=== PATIENT | male | born 1960 | race Caucasian/White ===

== ENCOUNTER → 2019-06-09 | Outpatient (CLI) | payer BC ==
[2019-06-09 11:33] LABS: HCT 47.4 % (39.0-53.0); HGB 16.3 gm/dL (13.0-17.5); MCH 32.6 pg (25.0-35.0); MCHC 34.3 g/dL (31.0-37.0); Mean Platelet Volume 7.8; Platelet Count 190 k/uL (150-450); RBC 4.99 m/uL (4.30-5.90); RDW 11.8 % (11.5-15.5); WBC 7.8 k/uL (3.8-10.6)
[2019-06-09 16:15] LABS: African American GFR (CKD) 113.3 (60.0-200.0); Albumin 4.4 g/dL (3.80-4.90); Albumin/Globulin Ratio 2.59 (1.60-3.17); Anion Gap 4.4 mmol/L (4.00-12.00); BUN/Creat Ratio 11.25 Ratio (12.00-20.00); Calcium 8.9 mg/dL (8.7-10.3); Carbon Dioxide 26.6 mmol/L (21.6-31.8); Chol/HDL Ratio 2.74; Globulin 1.7 g/dL (1.6-3.3); LDL Cholesterol,Calculated 51.6 mg/dL (0.0-131.0); Non-African American GFR(CKD) 97.8 (60.0-200.0); Potassium 4.3 mmol/L (3.5-5.5); Total Bilirubin 0.5 mg/dL (0.3-1.2); Total Protein 6.1 g/dL (6.2-8.2); VLDL Calculation 28.4 mg/dL (5.00-40.00)
[2019-06-09 16:24] LABS: T4, Free (Free Thyroxine) 1.4 ng/dL (0.80-1.80)
== END | disposition home or self-care (01) ==
LOC: LABWHC1 10:28
PROVIDERS: ATTEND Physician Assistant
DX: I10 Essential (primary) hypertension (principal); S09.90XA Unspecified injury of head, initial encounter; R40.4 Transient alteration of awareness; F10.10 Alcohol abuse, uncomplicated
CPT/HCPCS: 36415; 80053; 80061; 82140; 82607; 84207; 84439; 84443; 84481; 85027

== ENCOUNTER 2019-11-04 16:23 | Emergency (ER) | payer BC ==
[2019-11-04] MEDS ORDERED: SODIUM CHLORIDE 0.9% 500 ML 500 ML IV STA ×2 (16:37→17:12)
[2019-11-04] MEDS ORDERED: SODIUM CHLORIDE 0.9% 1,000 ML IV STA (16:37)
[2019-11-04 16:53] LABS: Basophils # (A) 0.1 k/uL (0-0.2); Basophils % (A) 1 %; Eosinophils # (A) 0.1 k/uL (0-0.7); Eosinophils % (A) 1 %; HCT 47.5 % (39.0-53.0); HGB 15.4 gm/dL (13.0-17.5); Lymphocytes # (A) 1.2 k/uL (1.0-4.8); Lymphocytes % (A) 12 %; MCH 31.7 pg (25.0-35.0); MCHC 32.4 g/dL (31.0-37.0); MCV 97.9 fL (80.0-100.0); Monocytes # (A) 0.3 k/uL (0-1.0); Monocytes % (A) 3 %; Neutrophils # (A) 8.2 k/uL (1.3-7.7); Neutrophils % (A) 82 %; Platelet Count 214 k/uL (150-450); RBC 4.85 m/uL (4.30-5.90); RDW 12.1 % (11.5-15.5); WBC 9.9 k/uL (3.8-10.6)
[2019-11-04 17:04] LABS: AST 25 U/L (17-59); Acetaminophen <10.0 ug/mL; African American GFR (CKD) >90 (>60 ml/min/1.73 sqM); Alcohol <10 mg/dL; Alkaline Phosphatase 74 U/L (38-126); Anion Gap 16 mmol/L; Blood Urea Nitrogen 7 mg/dL (9-20); Calcium 8.8 mg/dL (8.4-10.2); Carbon Dioxide 14 mmol/L (22-30); Chloride 103 mmol/L (98-107); Glucose 156 mg/dL (74-99); Magnesium 1.8 mg/dL (1.6-2.3); Non-African American GFR(CKD) >90 (>60 ml/min/1.73 sqM); Potassium 4.2 mmol/L (3.5-5.1); Salicylate <1.0 mg/dL; Sodium 133 mmol/L (137-145); Total Bilirubin 0.4 mg/dL (0.2-1.3); Total Protein 6.6 g/dL (6.3-8.2)
--- NOTE | 2019-11-04 17:06 | ED ---
Seizure HPI - General Chief Complaint: Seizure Stated Complaint: Seizure Time Seen by Provider: 11/04/19 16:23 Source: EMS, RN notes reviewed Mode of arrival: EMS Limitations: altered mental status - History of Present Illness Initial Comments: Is a 59-year-old male with a history of hypertension also has possibility of chronic pain syndrome due to medications that are prescribed who presents by EMS with complaints of a seizure. Apparently found on the floor seizing by his lasting approximately 5 minutes or less when he came out of it he was very combative and had to be restrained per paramedics. He was given Versed IM 10 mg a. This did help control his aggressiveness. He did arrive the emergency department somnolent but no seizure activity noted. He did sustain abrasions to his wrist especially on the left the restraints. No known he history of seizure apparently he was out fishing until 2 AM with a friend. He does have a history of a closed head injury in April this past year with evidence of intermittent memory loss per reports. He is been worked up for this no obvious gross abnormalities apparently been found on evaluations. Drugs alcohol or unknown at this time. Patient is unable answer questions at this time. MD Complaint: seizure, shaking - Related Data Home Medications Medication Instructions Recorded Confirmed Buprenorphine HCl/Naloxone HCl 1 film SL BID 11/04/19 11/04/19 [Bupreno-Nalox 2-0.5 mg Sl Film] amLODIPine BESYLATE/BENAZEPRIL 1 cap PO BID 11/04/19 11/04/19 [amLODIPine BESYLATE/BENAZEPRIL 5-20 mg] Allergies Allergy/AdvReac Type Severity Reaction Status Date / Time No Known Allergies Allergy Verified 11/04/19 17:49 Review of Systems ROS Statement: Those systems with pertinent positive or pertinent negative responses have been documented in the HPI. ROS Other: All systems not noted in ROS Statement are negative. Past Medical History Past Medical History: No Reported History, Unable to Obtain, Hypertension History of Any Multi-Drug Resistant Organisms: None Reported Past Surgical History: No Surgical Hx Reported Past Psychological History: No Psychological Hx Reported Smoking Status: Never smoker Past Alcohol Use History: None Reported Past Drug Use History: None Reported General Exam - General Exam Comments Initial Comments: This is a well-developed well-nourished obtunded patient Limitations: altered mental status General appearance: obtunded Head exam: Present: atraumatic, normocephalic, normal inspection Eye exam: Present: PERRL, EOMI, other (Pupils are approximately 2 mm bilaterally with some response noted). Absent: scleral icterus, conjunctival injection, periorbital swelling ENT exam: Present: mucous membranes dry, other (Dry blood in the tongue with evidence of a superficial abrasion no active bleeding seen at this time) Neck exam: Present: normal inspection, other (No cervical collar in place no response to palpation over the neck or C-spine but no evidence of crepitation or step-off.). Absent: tenderness, meningismus, lymphadenopathy Respiratory exam: Present: normal lung sounds bilaterally, other (Patient did evidence a brief apneic episode which did resolve). Absent: respiratory distress, wheezes, rales, rhonchi, stridor Cardiovascular Exam: Present: regular rate, normal rhythm, normal heart sounds. Absent: systolic murmur, diastolic murmur, rubs, gallop, clicks GI/Abdominal exam: Present: soft, normal bowel sounds. Absent: distended, tenderness, guarding, rebound, rigid Extremities exam: Present: full ROM, normal capillary refill, other (No obvious deformity seen abrasions especially over the left wrist no active bleeding no suture repair indicated slight one on the right and left leg abrasions no active bleeding no step-off or crepitation form body.). Absent: tenderness, pedal edema, joint swelling, calf tenderness Back exam: Present: normal inspection Neurological exam: Present: alert, altered, CN II-XII intact Psychiatric exam: Present: other (Unable to evaluate) Skin exam: Present: warm, dry, normal color. Absent: intact (As above), rash Course Vital Signs 11/04/19 11/04/19 11/04/19 16:35 17:13 17:22 Temperature 98.1 F Pulse Rate 92 74 73 Respiratory 18 18 20 Rate Blood Pressure 99/63 77/41 83/43 O2 Sat by Pulse 94 L 97 96 Oximetry 11/04/19 18:01 Temperature Pulse Rate 70 Respiratory 20 Rate Blood Pressure 109/68 O2 Sat by Pulse 98 Oximetry - Reevaluation(s) Reevaluation #1: 11/04/19 18:25 Reevaluation the patient did respond to IV fluids with improvement in his blood pressure. He has had no further respiratory difficulties. Medical Decision Making - Medical Decision Making Patient remains somnolent but somewhat arousable at this time to stimulation. No focal deficits is demonstrated. Patient did present with what appears be a new onset seizure. I did discuss the case with Dr. Quevedo at [facility] there is no neurology coverage at [facility] at this time patient be transferred for further evaluation of new onset seizure. - Lab Data Result diagrams: 11/04/19 16:35 11/04/19 16:35 Lab Results 11/04/19 11/04/19 11/04/19 Range/Units 16:35 16:35 17:09 WBC 9.9 (3.8-10.6) k/uL RBC 4.85 (4.30-5.90) m/uL Hgb 15.4 (13.0-17.5) gm/dL Hct 47.5 (39.0-53.0) % MCV 97.9 (80.0-100.0) fL MCH 31.7 (25.0-35.0) pg MCHC 32.4 (31.0-37.0) g/dL RDW 12.1 (11.5-15.5) % Plt Count 214 (150-450) k/uL Neutrophils % 82 % Lymphocytes % 12 % Monocytes % 3 % Eosinophils % 1 % Basophils % 1 % Neutrophils # 8.2 H (1.3-7.7) k/uL Lymphocytes # 1.2 (1.0-4.8) k/uL Monocytes # 0.3 (0-1.0) k/uL Eosinophils # 0.1 (0-0.7) k/uL Basophils # 0.1 (0-0.2) k/uL Sodium 133 L (137-145) mmol/L Potassium 4.2 (3.5-5.1) mmol/L Chloride 103 (98-107) mmol/L Carbon Dioxide 14 L (22-30) mmol/L Anion Gap 16 mmol/L BUN 7 L (9-20) mg/dL Creatinine 0.88 (0.66-1.25) mg/dL Est GFR (CKD-EPI)AfAm >90 (>60 ml/min/1.73 sqM) Est GFR (CKD-EPI)NonAf >90 (>60 ml/min/1.73 sqM) Glucose 156 H (74-99) mg/dL Calcium 8.8 (8.4-10.2) mg/dL Magnesium 1.8 (1.6-2.3) mg/dL Total Bilirubin 0.4 (0.2-1.3) mg/dL AST 25 (17-59) U/L ALT 22 (4-49) U/L Alkaline Phosphatase 74 (38-126) U/L Creatine Kinase 118 (55-170) U/L Total Protein 6.6 (6.3-8.2) g/dL Albumin 4.0 (3.5-5.0) g/dL TSH 1.130 (0.465-4.680) mIU/L Salicylates <1.0 mg/dL Acetaminophen <10.0 ug/mL Serum Alcohol <10 mg/dL - EKG Data -: EKG Interpreted by Me EKG shows normal: sinus rhythm EKG Comments: Sinus rhythm at 90. Interval 140 QRS duration 92 QT since QTC 366/[address]-T wave changes - Radiology Data Radiology results: report reviewed (I did review the imaging as and report no acute findings on CAT scan however the x-ray does show evidence of increased interstitial markings.), image reviewed Critical Care Time Critical Care Time: Yes Critical Care Time: 39 minutes of critical care time which includes initial presentation with hist ory physical labs x-rays. Multiple reevaluation the patient. Review of old charting that was available which was minimal. Discussion with the transfer team discussion with the initial paramedics brought the patient in. Discussion with the receiving facility and documentation of the above. Disposition Clinical Impression: New onset seizure, Generalized seizure, Hypotensive episode, Abrasions of multiple sites Disposition: OTHER INSTITUTION NOT DEFINED Condition: Fair Is patient prescribed a controlled substance at d/c from ED?: No Referrals: None,Stated [Primary Care Provider] - 1-2 days - Out of Hospital Transfer - Req. Specs Out of Hospital Transfer - Requested Specifics: Other Emergency Center
[2019-11-04 17:10] LABS: ALT 22 U/L (4-49)
--- NOTE | 2019-11-04 17:21 | CT ---
EXAMINATION TYPE: CT brain cspine wo con DATE OF EXAM: 11/04/2019 COMPARISON: None HISTORY: seizure CT DLP: 1313.8 mGycm Automated exposure control for dose reduction was used. Multiple axial sections were obtained of the brain without contrast. Multiple axial sections were obt ained from the skull base to T1 vertebra without contrast. Ventricles have normal size. There is no mass effect nor midline shift. There is no sign of intracran ial hemorrhage. The calvarium is intact. Cervical vertebra have normal alignment. There is mild spurring of the endplates throughout the cervi ivis spine. Posterior elements are intact. There is mild multilevel cervical hypertrophic facet arthro mitchell. The skull base is intact. There is normal aeration of the temporal bones. IMPRESSION: Negative head CT scan. Mild degenerative changes in the cervical spine. No fracture.
[2019-11-04 17:22] VITALS: RESP 20
[2019-11-04] MEDS ORDERED: levETIRAcetam IV 1,000 MG in SALINE 1 100ML.BAG IVPB STA (17:45)
--- NOTE | 2019-11-04 18:00 | XR ---
EXAMINATION TYPE: XR chest 1V portable DATE OF EXAM: 11/04/2019 COMPARISON: NONE HISTORY: Altered mental status. Seizure. TECHNIQUE: Single view FINDINGS: Heart and mediastinum are normal. There is coarse interstitial density throughout the lungs . Costophrenic angles are clear. There are chest leads. Bony thorax is intact. IMPRESSION: Diffuse interstitial pulmonary infiltrates. This could relate to acute interstitial pneum onia. Normal heart.
[2019-11-04] MEDS ORDERED: DIPH,PERTUS(ACELL)TETVAC-LF 0.5 ML VIAL IM ONE (18:28)
[2019-11-04 19:13] VITALS: BP 110/67; PULSE 64; TEMP 97
== END 2019-11-04 19:30 | disposition other institution (70) ==
LOC: EC 16:23
DX: G40.409 Other generalized epilepsy and epileptic syndromes, not intractable, without status epilepticus (principal); I95.9 Hypotension, unspecified; S80.812A Abrasion, left lower leg, initial encounter; S00.512A Abrasion of oral cavity, initial encounter; S60.812A Abrasion of left wrist, initial encounter; I10 Essential (primary) hypertension; Z23 Encounter for immunization; Z79.899 Other long term (current) drug therapy; X58.XXXA Exposure to other specified factors, initial encounter; Y92.009 Unspecified place in unspecified non-institutional (private) residence as the place of occurrence of the external cause
CPT/HCPCS: 36415; 93005; 83880; 80053; 84443; 82550; 83735; 84484; 85025; 83520; 80329; 80320; 71045; 72125; 70450; 90715; 96365; 90471; 96361; 99291; J1953

== ENCOUNTER → 2020-07-03 | Outpatient (CLI) | payer BC ==
[2020-07-03 10:54] LABS: HCT 44.8 % (39.0-53.0); HGB 15.3 gm/dL (13.0-17.5); MCH 31.8 pg (25.0-35.0); MCHC 34.1 g/dL (31.0-37.0); MCV 93.1 fL (80.0-100.0); Platelet Count 217 k/uL (150-450); RBC 4.81 m/uL (4.30-5.90); RDW 12.4 % (11.5-15.5); WBC 8.9 k/uL (3.8-10.6)
[2020-07-05 07:22] LABS: Vit B1(Thiamine) 74 ug/L (38-122)
== END | disposition home or self-care (01) ==
LOC: LABWHC1 10:19
PROVIDERS: ATTEND Physician Assistant
DX: F03.90 Unspecified dementia, unspecified severity, without behavioral disturbance, psychotic disturbance, mood disturbance, and anxiety (principal); R41.3 Other amnesia
CPT/HCPCS: 36415; 82040; 82042; 82784; 83916; 84425; 85027

== ENCOUNTER → 2021-05-29 | Outpatient (CLI) | payer BC ==
--- NOTE | 2021-05-29 13:41 | NM ---
EXAMINATION TYPE: NM bone scan whole body DATE OF EXAM: 05/29/2021 COMPARISON: NONE HISTORY: Prostate cancer Delayed whole-body scanning was performed following the injection of 20.0 mCi Tc 99m MDP. Images acq uired 3 hours post injection. FINDINGS: Extensive uptake involving the right kidney marked increased uptake involving the left kidn ey. Abnormal uptake involving the shoulders, sternoclavicular joints knees most typical of post arthritic change. Faint abnormal uptake proximal level of L3 on the left likely degenerative. Faint uptake seen through out the mid and lower thoracic spine likely degenerative. IMPRESSION: 1. No diagnostic evidence of metastases. 2. Correlate for nonfunctioning right or atrophic right kidney. Correlate with ultrasound as clinical ly.
== END | disposition home or self-care (01) ==
LOC: RADNMMAIN 10:01
PROVIDERS: ATTEND Urology
DX: C61 Malignant neoplasm of prostate (principal)
CPT/HCPCS: 78306; A9503

== ENCOUNTER → 2021-06-24 | Outpatient (CLI) | payer BC ==
--- NOTE | 2021-06-24 16:15 | US ---
EXAMINATION TYPE: US kidneys/renal and bladder DATE OF EXAM: 06/24/2021 COMPARISON: NONE CLINICAL HISTORY: N26.1 Atrophy of kidney. HX of prostate ca EXAM MEASUREMENTS: Right Kidney: 11.3 x 6.0 x 5.2 cm Left Kidney: 11.0 x 5.4 x 5.2 cm Right Kidney: No hydronephrosis or masses seen Left Kidney: No hydronephrosis or masses seen Bladder: Appears wnl; anechoic Bilateral Jets seen: Yes IMPRESSION: Normal renal ultrasound
== END | disposition home or self-care (01) ==
LOC: RADUSWWP 14:09
PROVIDERS: ATTEND Urology
DX: N26.1 Atrophy of kidney (terminal) (principal); Z85.46 Personal history of malignant neoplasm of prostate
CPT/HCPCS: 76770

== ENCOUNTER → 2021-09-05 | Outpatient (CLI) | payer BC ==
--- NOTE | 2021-09-06 12:45 | CT ---
EXAMINATION TYPE: CT ChestAbdPelvis wo/w con DATE OF EXAM: 09/05/2021 COMPARISON: Whole body bone scan June 08, 2021. Outside Prostate MRI May 25, 2021 HISTORY: new prostate ca dx CT DLP: 1010.4 mGycm. Automated Exposure Control for Dose Reduction was Utilized. CONTRAST: CT scan of the thorax, abdomen and pelvis is performed with oral and without and with IV Contrast, pa tient injected with 100 mL of Isovue 300. FINDINGS: LUNGS: Moderate underlying emphysematous change bilaterally. Heterogeneous enhancing spiculated mass or less likely mass like consolidation measuring 2.8 x 2.8 cm and the periphery of the inferior right upper lobe axial image 22 with inferior extension measuring 3.3 x 2.1 cm axial image 27. There is re ticulation near and surrounding this level. Nonspecific 4 mm peripheral right middle lobe nodule axia l image 43. No pleural effusion or pneumothorax seen bilaterally. MEDIASTINUM: There is abnormal 1.7 x 1.7 cm right tracheobronchial lymph node image 29. There is four -vessel origin from the aortic arch which is normal variant. Small to tiny pericardial effusion. No c ardiomegaly. LIVER/GB: No significant abnormality is appreciated. PANCREAS: No significant abnormality is seen. SPLEEN: No significant abnormality is seen. ADRENALS: No significant abnormality is seen. KIDNEYS: Symmetric cortical margin of the uptake and excretion without hydronephrosis seen bilaterall y. BOWEL: Oral contrast reaches level of terminal ileum in the right pelvis. No suspicious small or larg e bowel dilatation. GENITAL ORGANS: Prostate gland is mildly enlarged . Markedly abnormal appearance on MRI less well see n on CT LYMPH NODES: No greater than 1cm abdominal or pelvic lymph nodes are appreciated. Prominent pelvic ly mph nodes on MRI less well-seen on CT. OSSEOUS STRUCTURES: Nonspecific subtle lytic lesion superior L4 endplate coronal image 54. OTHER: [id number] calcified plaque of the abdominal aorta extends into branch vessels. IMPRESSION: Moderate emphysematous change with suspicious peripheral spiculated mass and/or less like ly masslike consolidation in the inferior right upper lobe. Finding worrisome for neoplasm. There is abnormal right tracheobronchial lymph node noted. Consider metastatic disease versus second primary lung carcinoma.
== END | disposition home or self-care (01) ==
LOC: RADCTMAIN 17:47
PROVIDERS: ATTEND Radiology Radiation Oncology
DX: C61 Malignant neoplasm of prostate (principal); J43.9 Emphysema, unspecified; R93.89 Abnormal findings on diagnostic imaging of other specified body structures
CPT/HCPCS: 71270; 74178; Q9967

== ENCOUNTER → 2021-09-09 | Outpatient (CLI) | payer BC | END | disposition home or self-care (01) | LOC: LABWHC1 13:53 | PROVIDERS: ATTEND Radiology Radiation Oncology | DX: C61 Malignant neoplasm of prostate (principal); C77.5 Secondary and unspecified malignant neoplasm of intrapelvic lymph nodes | CPT/HCPCS: 36415; 84153 ==

== ENCOUNTER → 2021-10-08 | Outpatient (CLI) | payer BC ==
--- NOTE | 2021-10-09 01:21 | MR ---
EXAMINATION TYPE: MR brain wo/w con DATE OF EXAM: 10/08/2021 COMPARISON: None HISTORY: Hx prostate and lung cancer, evaluate for metastatic disease. CONTRAST: Standard multiplanar, multisequence MRI departmental protocol images were obtained without contrast a nd with 7 mL intravenous Gadavist gadolinium contrast. Ventricles have fairly normal size. There is no mass effect or midline shift. There are a few scatter ed white matter high signal foci at the arriaza-white matter junction of both cerebral hemispheres. Tota l number is approximately 10 and most of these measure less than 3 mm. The brainstem is intact. Cereb ellum is intact. Sella turcica appears normal. Diffusion images show no sign of an acute infarct. Contrast images show no pathologic enhancement. There is normal enhancement of the venous sinuses. No evidence of cerebral edema. IMPRESSION: There are scattered white matter peripheral small foci that are likely related to microvascular ische shannan. No acute intracranial abnormality. No evidence of metastatic disease. No cortical infarct.
== END | disposition home or self-care (01) ==
LOC: RADMRIMAIN 17:28
PROVIDERS: ATTEND Internal Medicine Hematology & Oncology
DX: R90.89 Other abnormal findings on diagnostic imaging of central nervous system (principal)
CPT/HCPCS: 70553; A9585

== ENCOUNTER → 2021-10-10 | Outpatient (CLI) | payer BC ==
--- NOTE | 2021-10-14 06:23 | PE ---
EXAMINATION TYPE: PET CT fusion skull to thigh DATE OF EXAM: 10/10/2021 COMPARISON: Whole body CT September 05, 2021 HISTORY: Solitary pulmonary nodule, abnormal CT . Recent biopsy September 25, 2021 with suspected lung can cer. History of prostate cancer. TECHNIQUE: Following the intravenous administration of 12.7 mCi of F-18 FDG, whole body images are p erformed from the skull base to the midthigh. Images are reviewed on the computer in the coronal, ax ial, and sagittal planes. Reconstructed rotating images are created on independent workstation and r eviewed on the computer. A localization and attenuation correction CT is performed in conjunction w ith the PET scan. Blood glucose level equals 92 SCAN: Initial Scan FINDINGS: SKULL BASE AND NECK: No areas of abnormal hypermetabolic uptake. CHEST, MEDIASTINUM, AND HILAR REGION: Background moderate underlying emphysematous change redemonstra christian. Persistent suspicious irregular 6.2 x 2.7 cm mass in the periphery of the right upper to mid ziyad g axial image 82 with abnormal hypermetabolic uptake, max SUV is 8.58. No additional hypermetabolic masses or lymph nodes in the thorax. Persistent 1.6 x 1.5 cm low dense l esion right tracheobronchial level is ametabolic possible benign duplication cyst. ABDOMEN AND PELVIS: No adrenal masses. Normal excretion is seen. Mild hypermetabolic uptake correspon ds to irregular soft tissue in the anterior wall of the abdomen just left of midline near junction of the abdomen and pelvis at level of the iliac crests axial image 188, max SUV is 3.02. Mild nonspecif ic bowel uptake favored benign. OSSEOUS STRUCTURES: No abnormal hypermetabolic uptake. OTHER CT: Small to tiny pericardial effusion. Mild concentric wall thickening of the bladder may be p roducts of outlet obstruction from BPH. Correlate clinically. IMPRESSION: Confirmation of abnormal hypermetabolic uptake in suspected peripheral right lung maligna ncy. No abnormal adenopathy or metastatic disease. Anterior subcutaneous lesion left lower abdomen fa vors dermatologic perhaps inflammatory lesion. Correlate clinically.
== END | disposition home or self-care (01) ==
LOC: RADPETMAIN 17:12
PROVIDERS: ATTEND Internal Medicine Critical Care Medicine
DX: R91.1 Solitary pulmonary nodule (principal); Z85.46 Personal history of malignant neoplasm of prostate
CPT/HCPCS: 78815; A9552

== ENCOUNTER 2021-11-01 09:36 | Observation (INO) | payer BC ==
[2021-11-01] MEDS ORDERED: LORazepam 2 MG/ML INJ IV STA (09:56)
[2021-11-01 10:16] LABS: Basophils # (A) 0.1 k/uL (0-0.2); Basophils % (A) 1 %; Eosinophils # (A) 0.1 k/uL (0-0.7); Eosinophils % (A) 1 %; HCT 49.3 % (39.0-53.0); HGB 15.2 gm/dL (13.0-17.5); Lymphocytes # (A) 2.5 k/uL (1.0-4.8); Lymphocytes % (A) 21 %; MCH 31.3 pg (25.0-35.0); MCHC 30.9 g/dL (31.0-37.0); MCV 101.5 fL (80.0-100.0); Mean Platelet Volume 7.8; Monocytes # (A) 0.6 k/uL (0-1.0); Monocytes % (A) 5 %; Neutrophils # (A) 8.5 k/uL (1.3-7.7); Neutrophils % (A) 71 %; Platelet Count 224 k/uL (150-450); RBC 4.86 m/uL (4.30-5.90); RDW 11.7 % (11.5-15.5)
[2021-11-01 10:20] LABS: ALT 29 U/L (4-49); AST 28 U/L (17-59); African American GFR (CKD) >90 (>60 ml/min/1.73 sqM); Albumin 5.2 g/dL (3.5-5.0); Alcohol <10 mg/dL; Alkaline Phosphatase 73 U/L (38-126); Anion Gap 22 mmol/L; Blood Urea Nitrogen 16 mg/dL (9-20); Calcium 10.3 mg/dL (8.4-10.2); Carbon Dioxide 14 mmol/L (22-30); Chloride 106 mmol/L (98-107); Glucose 144 mg/dL (74-99); Non-African American GFR(CKD) 80 (>60 ml/min/1.73 sqM); Potassium 4.9 mmol/L (3.5-5.1); Sodium 142 mmol/L (137-145); Total Bilirubin 0.7 mg/dL (0.2-1.3); Total Protein 7.9 g/dL (6.3-8.2)
--- NOTE | 2021-11-01 10:26 | ED ---
General Adult HPI - General Chief complaint: Seizure Stated complaint: Seizure Time Seen by Provider: 11/01/21 09:40 Source: patient, RN notes reviewed, old records reviewed Mode of arrival: ambulatory Limitations: no limitations - History of Present Illness Initial comments: This is a 61-year-old male who presents to the emergency department after having had a seizure. Patient has history of seizures for the last couple of years secondary to a closed head injury however he stopped his seizure medications about 6-9 months ago and hasn't had a seizure since. states he was recently diagnosed with lung cancer and has been under a lot of stress because of that. Patient sees this morning twice at home and then one more time in the emergency department. Patient does not drink and is not doing any drugs according to the . Patient has had no recent fevers chills. There is been no recent complaints of chest pain difficulty breathing shortness of breath per patient had no abdominal pain patient has no nausea vomiting diarrhea. - Related Data Home Medications Medication Instructions Recorded Confirmed amLODIPine BESYLATE/BENAZEPRIL 1 cap PO BID 11/04/19 09/23/21 [amLODIPine BESYLATE/BENAZEPRIL 5-20 mg] Donepezil [Aricept] 10 mg PO 199909/23/21 09/23/21 Allergies Allergy/AdvReac Type Severity Reaction Status Date / Time No Known Allergies Allergy Verified 11/01/21 09:44 Review of Systems ROS Statement: Those systems with pertinent positive or pertinent negative responses have been documented in the HPI. ROS Other: All systems not noted in ROS Statement are negative. Past Medical History Past Medical History: Cancer, Hypertension, Seizure Disorder Additional Past Medical History / Comment(s): LAST SEIZURE MAR 2019 APPROX , PAST HISTORY OF MIGRAINE, PROSTATE CANCER , ABNORMAL CT SCAN OF LUNG, History of Any Multi-Drug Resistant Organisms: None Reported Past Surgical History: Tonsillectomy Additional Past Surgical History / Comment(s): COLONOSCOPY, Past Anesthesia/Blood Transfusion Reactions: No Reported Reaction Past Psychological History: No Psychological Hx Reported Smoking Status: Current every day smoker Past Alcohol Use History: None Reported Past Drug Use History: None Reported - Past Family History Father Family Medical History: Cancer Additional Family Medical History / Comment(s): LUNG CANCER General Exam - General Exam Comments Initial Comments: GENERAL: Patient is well-developed and well-nourished. Patient is nontoxic and well-hydr ated and is in mild distress. ENT: Neck is soft and supple. No significant lymphadenopathy is noted. Oropharynx is clear. Moist mucous membranes. Neck has full range of motion without eliciting any pain. EYES: The sclera were anicteric and conjunctiva were pink and moist. Extraocular movements were intact and pupils were equal round and reactive to light. Eyelids were unremarkable. PULMONARY: Unlabored respirations. Good breath sounds bilaterally. No audible rales rhonchi or wheezing was noted. CARDIOVASCULAR: There is a regular rate and rhythm without any murmurs gallops or rubs. ABDOMEN: Soft and nontender with normal bowel sounds. SKIN: Skin is clear with no lesions or rashes and otherwise unremarkable. NEUROLOGIC: Patient appears to be in a postictal state it does not answer any questions. Cranial nerves II through XII are grossly intact. Motor and sensory are also intact. Normal speech, volume and content. Symmetrical smile. MUSCULOSKELETAL: Normal extremities with adequate strength and full range of motion. LYMPHATICS: No significant lymphadenopathy is noted PSYCHIATRIC: Normal psychiatric evaluation. Limitations: no limitations Course Vital Signs 11/01/21 09:37 Temperature 97.8 F Pulse Rate 75 Respiratory 18 Rate Blood Pressure 119/70 O2 Sat by Pulse 92 L Oximetry Medical Decision Making - Medical Decision Making EKG shows sinus rhythm at 89 bpm IA interval is 148 QRS is 102 QT interval 312 QTC is 359. Patient's EKG shows no ST segment elevation or depression. Patient's CT of the brain shows no acute abnormality. Patient has had 3 seizures today and was given Ativan in the emergency department. I spoke with Dr. Andrews he agreed to admit the patient admitted the patient I wrote admitting orders. - Lab Data Result diagrams: 11/01/21 10:04 11/01/21 10:04 Lab Results 11/01/21 11/01/21 11/01/21 Range/Units 10:02 10:04 10:04 WBC 12.0 H (3.8-10.6) k/uL RBC 4.86 (4.30-5.90) m/uL Hgb 15.2 (13.0-17.5) gm/dL Hct 49.3 (39.0-53.0) % MCV 101.5 H (80.0-100.0) fL MCH 31.3 (25.0-35.0) pg MCHC 30.9 L (31.0-37.0) g/dL RDW 11.7 (11.5-15.5) % Plt Count 224 (150-450) k/uL MPV 7.8 Neutrophils % 71 % Lymphocytes % 21 % Monocytes % 5 % Eosinophils % 1 % Basophils % 1 % Neutrophils # 8.5 H (1.3-7.7) k/uL Lymphocytes # 2.5 (1.0-4.8) k/uL Monocytes # 0.6 (0-1.0) k/uL Eosinophils # 0.1 (0-0.7) k/uL Basophils # 0.1 (0-0.2) k/uL Sodium 142 (137-145) mmol/L Potassium 4.9 (3.5-5.1) mmol/L Chloride 106 (98-107) mmol/L Carbon Dioxide 14 L (22-30) mmol/L Anion Gap 22 mmol/L BUN 16 (9-20) mg/dL Creatinine 1.00 (0.66-1.25) mg/dL Est GFR (CKD-EPI)AfAm >90 (>60 ml/min/1.73 sqM) Est GFR (CKD-EPI)NonAf 80 (>60 ml/min/1.73 sqM) Glucose 144 H (74-99) mg/dL Calcium 10.3 H (8.4-10.2) mg/dL Total Bilirubin 0.7 (0.2-1.3) mg/dL AST 28 (17-59) U/L ALT 29 (4-49) U/L Alkaline Phosphatase 73 (38-126) U/L Total Protein 7.9 (6.3-8.2) g/dL Albumin 5.2 H (3.5-5.0) g/dL Urine Opiates Screen Not Detected (NotDetected) Ur Oxycodone Screen Not Detected (NotDetected) Urine Methadone Screen Not Detected (NotDetected) Ur Propoxyphene Screen Not Detected (NotDetected) Ur Barbiturates Screen Not Detected (NotDetected) U Tricyclic Antidepress Not Detected (NotDetected) Ur Phencyclidine Scrn Not Detected (NotDetected) Ur Amphetamines Screen Not Detected (NotDetected) U Methamphetamines Scrn Not Detected (NotDetected) U Benzodiazepines Scrn Not Detected (NotDetected) Urine Cocaine Screen Not Detected (NotDetected) U Marijuana (THC) Screen Not Detected (NotDetected) Serum Alcohol <10 mg/dL Disposition Clinical Impression: Status epilepticus Disposition: ADMITTED IP TO THIS HOSP Referrals: Jasvir Chau MD [Primary Care Provider] - 1-2 days Time of Disposition: 11:20
--- NOTE | 2021-11-01 11:15 | CT ---
EXAMINATION TYPE: CT brain wo con DATE OF EXAM: 11/01/2021 COMPARISON: MRI 10/08/2021 HISTORY: 61-year-old male confusion, Seizure, AMS TECHNIQUE: Examination was done in axial plane without intravenous contrast. Coronal and sagittal r econstructions performed. CT DLP: 2 mGycm Automated exposure control for dose reduction was used. FINDINGS: Patient motion limiting detailed assessment. No evidence for acute intracranial hemorrhage, midline s hift, or convincing evidence for extra-axial fluid collection. No effacement of cerebral sulci or bas al subarachnoid cisterns. No hydrocephalus. Mild mucosal thickening right maxillary sinus. Mastoid air cells are well pneumatized. IMPRESSION: Detail assessment limited by patient motion. No herniation, hydrocephalus, midline shift, or acute in tracranial hemorrhage seen.
[2021-11-01 11:31] LABS: Amphetamine Screen,Urine Not Detected (NotDetected); Barbiturate Screen,Urine Not Detected (NotDetected); Benzodiazepines Screen,Urine Not Detected (NotDetected); Cocaine Screen,Urine Not Detected (NotDetected); Methadone Screen, Urine Not Detected (NotDetected); Opiate Screen,Urine Not Detected (NotDetected); Oxycodone Screen, Urine Not Detected (NotDetected); Phencyclidine Screen,Urine Not Detected (NotDetected); Tricyclic Antidepressant,Urine Not Detected (NotDetected); Urn Cannabinoid Scrn Not Detected (NotDetected)
[2021-11-01] MEDS ORDERED: SODIUM CHLORIDE 0.9% 1,000 ML IV ONE (11:35)
[2021-11-01] MEDS ORDERED: levETIRAcetam IV 1,500 MG in SALINE 1 100ML.BAG IVPB STA (12:24)
[2021-11-01] MEDS ORDERED: NALOXONE 0.4 MG/ML 1 ML VIAL IV PRN (13:07)
--- NOTE | 2021-11-01 13:09 | P.HPIM ---
History of Present Illness H&P Date: 11/01/21 Chief Complaint: seizure 61-year-old male who presents to the emergency department after having 2 seizures at home. No prodromal symptoms according to patient. Symptoms started suddenly. Patient has history of seizures for the last couple of years secondary to a closed head injury however he stopped his seizure medications about 6 months ago according to his neurologist recommendation after he was seizure free for 2 years. Patient was recently diagnosed with lung cancer localized in the right upper lobe and was scheduled for lobectomy. Patient has been under a lot of stress because of that. Patient does not drink and is not doing any drugs according to the . Patient has had no recent fevers chills. No complaints of chest pain, difficulty breathing, no abdominal pain, no nausea vomiting diarrhea. In the emergency department he had his third seizure which lasted for a few minutes, it was followed by postictal confusion. No urinary incontinence or tongue biting. Laboratory workup was unremarkable except for mild leukocytosis at 12,000, calcium at 10.3. He was not febrile. He was admitted for further monitoring. Review of Systems Complete review of system was performed, negative except for what is stated in HPI Past Medical History Past Medical History: Cancer, Hypertension, Seizure Disorder Additional Past Medical History / Comment(s): LAST SEIZURE MAR 2019 APPROX , PAST HISTORY OF MIGRAINE, PROSTATE CANCER , ABNORMAL CT SCAN OF LUNG, History of Any Multi-Drug Resistant Organisms: None Reported Past Surgical History: Tonsillectomy Additional Past Surgical History / Comment(s): COLONOSCOPY, Past Anesthesia/Blood Transfusion Reactions: No Reported Reaction Past Psychological History: No Psychological Hx Reported Smoking Status: Current every day smoker Past Alcohol Use History: None Reported Past Drug Use History: None Reported - Past Family History Father Family Medical History: Cancer Additional Family Medical History / Comment(s): LUNG CANCER Medications and Allergies Home Medications Medication Instructions Recorded Confirmed Type amLODIPine BESYLATE/BENAZEPRIL 1 cap PO BID 11/04/19 11/01/21 History [amLODIPine BESYLATE/BENAZEPRIL 5-20 mg] Donepezil [Aricept] 10 mg PO HS 09/23/21 11/01/21 History Calcium Carbonate/Vitamin D3 1 tab PO DAILY 11/01/21 11/01/21 History [Calcium 500 mg-Vit D3 5 mcg (200 Unit)] Allergies Allergy/AdvReac Type Severity Reaction Status Date / Time No Known Allergies Allergy Verified 11/01/21 12:08 Physical Exam Vitals: Vital Signs Temp Pulse Resp BP Pulse Ox 11/01/21 12:25 77 16 137/52 97 11/01/21 09:37 97.8 F 75 18 119/70 92 L Intake and Output 10/31/21 11/01/21 11/01/21 22:59 06:59 14:59 Other: Weight 68.039 kg Constitutional: No acute distress, conversant, pleasant Eyes:Anicteric sclerae, moist conjunctiva, no lid-lag, PERRLA, ENMT: Oropharynx clear, no erythema, exudates Neck: Supple, FROM, no masses, or JVD, No carotid bruits, No thyromegaly Lungs: Clear to auscultation, Clear to percussion, Normal respiratory effort, no accessory muscle use Cardiovascular: Heart regular in rate and rhythm, No murmurs, gallops, or rubs, No peripheral edema Abdominal: Soft, Nontender, no guarding, rebound or rigidity, Normoactive bowel sounds, No hepatomegaly, No splenomegaly, No palpable mass Skin: Normal temperature, tone, texture, turgor, no induration, No subcutaneous nodules, No rash, lesions, No ulcers Extremities: No digital cyanosis, No clubbing, Pedal pulses intact and symmetri ivis, Radial pulses intact and symmetrical, No calf tenderness Psychiatric: Alert and oriented to person, place and time, appropriate affect, intact judgement Neuro: Muscles Strength 5/5 in all 4 extremities, Sensation to light touch grossly present throughout, Cranial nerves II-XII grossly intact, no focal sensory deficits Results CBC & Chem 7: 11/01/21 10:04 11/01/21 10:04 Labs: Abnormal Lab Results - Last 24 Hours (Table) 11/01/21 11/01/21 Range/Units 10:04 10:04 WBC 12.0 H (3.8-10.6) k/uL MCV 101.5 H (80.0-100.0) fL MCHC 30.9 L (31.0-37.0) g/dL Neutrophils # 8.5 H (1.3-7.7) k/uL Carbon Dioxide 14 L (22-30) mmol/L Glucose 144 H (74-99) mg/dL Calcium 10.3 H (8.4-10.2) mg/dL Albumin 5.2 H (3.5-5.0) g/dL Assessment and Plan Plan: 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
[2021-11-01] MEDS: amLODIPine 5 MG TAB PO SCH ×2 (14:28→19:42)
[2021-11-01] MEDS: lisinopriL 20 MG TAB PO SCH ×2 (14:29→19:40)
[2021-11-01 15:07] VITALS: RESP 18
--- NOTE | 2021-11-01 16:22 | P.CNNES ---
History of Present Illness Consult date: 11/01/21 Reason for Consult: Status epilepticus History of Present Illness: The patient is a 61-year-old male who is seen in neurologic consulta tion on November 01, 2021, via teleneurology The patient is being seen because of repeated seizures. Patient's is present at the bedside at the time of the evaluation. She is able to provide a history. She reports that her had been taking Keppra for seizure disorder. The seizure disorder was reportedly caused from a history of head injuries. Patient had been seizure free for approximately 2 years. It was elected to discontinue the seizure medication. The patient has been off the m edication for approximately 6 months. Apparently this morning, patient had 2 seizures at home. Patient's reports that the seizures always begin the same way. They are stereotypical. The patient himself denies an aura. Patient's reports that after the the patient had his second seizure she decided it was time to bring him into the hospital. He reportedly had 3 more seizures, while in the emergency department. I am evaluating the patient at approximate one hour following his most recent seizure. The patient is awake and alert. He is talking. He is able to answer questions. The patient denies tongue biting, loss of bowel or bladder control, sore muscles and headache. The patient's reports that at the seizures which occurred in the emergency department were much longer lasting and "more severe" than the seizures which occurred at home. The patient was reportedly given Ativan in the emergency department. He was not restarted on his antiepileptic medication. CT scan of the brain was obtained. There is no evidence of acute hemorrhage or infarct or mass. Laboratory evaluation reveals an elevated lactic acid. Urine drug screen is negative. White blood cell count is elevated. Review of Systems Negative, with the exception of reported "mild, early dementia", per Past Medical History Past Medical History: Cancer, Hypertension, Seizure Disorder Additional Past Medical History / Comment(s): LAST SEIZURE MAR 2019 APPROX , PAST HISTORY OF MIGRAINE, PROSTATE CANCER , ABNORMAL CT SCAN OF LUNG, History of Any Multi-Drug Resistant Organisms: None Reported Past Surgical History: Tonsillectomy Additional Past Surgical History / Comment(s): COLONOSCOPY, Past Anesthesia/Blood Transfusion Reactions: No Reported Reaction Past Psychological History: No Psychological Hx Reported Smoking Status: Current every day smoker Past Alcohol Use History: None Reported Past Drug Use History: None Reported - Past Family History Father Family Medical History: Cancer Additional Family Medical History / Comment(s): LUNG CANCER Medications and Allergies Home Medications Medication Instructions Recorded Confirmed Type amLODIPine BESYLATE/BENAZEPRIL 1 cap PO BID 11/04/19 11/01/21 History [amLODIPine BESYLATE/BENAZEPRIL 5-20 mg] Donepezil [Aricept] 10 mg PO HS 09/23/21 11/01/21 History Calcium Carbonate/Vitamin D3 1 tab PO DAILY 11/01/21 11/01/21 History [Calcium 500 mg-Vit D3 5 mcg (200 Unit)] Allergies Allergy/AdvReac Type Severity Reaction Status Date / Time No Known Allergies Allergy Verified 11/01/21 12:08 Physical Examination - Vital Signs Vital Signs: Vital Signs Temp Pulse Resp BP Pulse Ox 11/01/21 12:25 77 16 137/52 97 11/01/21 09:37 97.8 F 75 18 119/70 92 L Intake and Output 10/31/21 11/01/21 11/01/21 22:59 06:59 14:59 Other: Weight 68.039 kg Gen.: The patient is seen in the emergency department. His is present at the bedside. He is well-nourished, well-developed and in no acute distress. HEENT: Head is atraumatic, normocephalic. Fundus not visualized. There is no scleral icterus. Mucous membranes are moist. There is no evidence of tongue bite. Neck: Supple without carotid bruits Heart: Regular rate and rhythm Lungs: Clear to auscultation Extremities: Without edema Neurological examination Mental status: The patient is awake and alert. He is able to state his name, date of , age and location. He is not oriented to the current year or month. There is no anomia. Cranial nerves: Pupils are equal at 3 mm and reactive. Visual amin are full to confrontation. Extraocular movements are intact. There is no nystagmus. Facial sensation is intact. There is no facial asymmetry. Hearing is grossly intact. Uvula and palate are midline. Shoulder shrug is symmetric. Tongue protrudes midline. Motor: Strength is 5/5 throughout Coordination: Finger to nose and heel to shankar testing are intact. Deep tendon reflexes: 2+/4+ throughout. Sensation: Grossly intact to light touch throughout Gait: Not assessed Results - Laboratory Findings CBC and BMP: 11/01/21 10:04 11/01/21 10:04 Abnormal Lab Findings: Abnormal Labs 11/01/21 11/01/21 10:04 10:04 WBC 12.0 H MCV 101.5 H MCHC 30.9 L Neutrophils # 8.5 H Carbon Dioxide 14 L Glucose 144 H Calcium 10.3 H Albumin 5.2 H Assessment and Plan Assessment: 1. Recurrent seizure, status post discontinuation of antiepileptic medication 2. Reported history of seizure disorder secondary to head injuries 3. Reported recent diagnosis of lung cancer, must rule out brain metastases as possible etiology of recurrent seizure 4. History of prostate cancer 5. Reported history of mild dementia Plan: 1. Stat loading dose of IV Keppra, 1500 mg, with maintenance dose of 500 mg twice daily 2. MRI of the brain with and without gadolinium 3. Seizure precautions 4. Ativan 1 mg IV push when necessary breakthrough seizure Thank you for allowing us to participate in the care of this patient Time with Patient: Greater than 30 (Spent 40 minutes with patient and gathering history, examining and counseling)
[2021-11-01] MEDS ORDERED: ACETAMINOPHEN TAB 325 MG TAB PO PRN (18:32)
[2021-11-01 19:34] VITALS: TEMP 98
[2021-11-01] MEDS: levETIRAcetam 500 MG TAB PO SCH (19:41)
[2021-11-01] MEDS ORDERED: DONEPEZIL 10 MG TAB PO SCH (21:00)
[2021-11-02] MEDS: levETIRAcetam 500 MG TAB PO SCH (07:40)
[2021-11-02] MEDS: lisinopriL 20 MG TAB PO SCH (07:40)
[2021-11-02] MEDS: amLODIPine 5 MG TAB PO SCH (07:40)
[2021-11-02 08:52] VITALS: BP 114/50; PULSE 66
[2021-11-02 09:12] LABS: Albumin/Globulin Ratio 2.11 (1.60-3.17); Anion Gap 10.5 mmol/L (10.00-18.00); BUN/Creat Ratio 14.63 Ratio (12.00-20.00); Blood Urea Nitrogen 11.7 mg/dL (9.0-27.0); Calcium 8.8 mg/dL (8.7-10.3); Carbon Dioxide 21.5 mmol/L (20.0-27.5); Globulin 1.9 g/dL (1.6-3.3); Magnesium 2.2 mg/dL (1.5-2.4); Non-African American GFR(CKD) 95.7 (60.0-200.0); Potassium 4.3 mmol/L (3.5-5.5); Total Bilirubin 0.2 mg/dL (0.30-1.20); Total Protein 5.9 g/dL (6.2-8.2)
[2021-11-02 09:14] LABS: Basophils # (A) 0.03 X 10*3/uL (0.00-0.10); Basophils % (A) 0.3 %; Eosinophils # (A) 0.24 X 10*3/uL (0.04-0.35); Eosinophils % (A) 2.5 %; HCT 38.3 % (39.6-50.0); HGB 12.8 g/dL (13.0-17.0); Immature Grans, Automated 0.3 %; Lymphocytes % (A) 23.6 %; MCH 31.4 pg (27.0-32.0); MCHC 33.4 g/dL (32.0-37.0); MCV 93.9 fL (80.0-97.0); Mean Platelet Volume 10.1 fL (9.5-12.2); Monocytes # (A) 0.96 X 10*3/uL (0.20-1.00); Monocytes % (A) 9.8 %; NRBC Per 100 WBC 0 /100 WBCS (0.0-0.0); Neutrophils % (A) 63.5 %; Platelet Count 192 X 10*3/uL (140-440); RBC 4.08 X 10*6/uL (4.40-5.60); RDW 11.7 % (11.5-14.5); WBC 9.76 X 10*3/uL (4.50-10.00)
--- NOTE | 2021-11-02 12:09 | P.PN ---
Subjective Progress Note Date: 11/02/21 The patient is seen in neurologic follow-up on November 02, 2021 via teleneurology. The patient's is at the bedside at the time of the evaluation. The patient reports feeling better. He denies further seizures. He recalls seeing me yesterday. Objective - Vital Signs Vital signs: Vital Signs Temp 98.0 F 11/02/21 08:00 Pulse 66 11/02/21 08:00 Resp 18 11/02/21 08:00 BP 114/50 11/02/21 08:00 Pulse Ox 93 L 11/02/21 08:00 Intake & Output 11/01/21 11/02/21 11/02/21 18:59 06:59 18:59 Intake Total 480 Output Total 0 Balance 480 Weight 68.039 kg Intake: Oral 480 Output: Urine 0 Other: Voiding Method Toilet # Voids 1 - Exam Gen.: The patient is seated in the bedside chair. His well-nourished. He is in no acute distress. HEENT: Head is atraumatic, normocephalic. Fundus not visualized. There is no scleral icterus. Mucous membranes are moist. Neurological examination Mental status: Patient is awake, alert and oriented 3. He is able to state his full name, date of , age, current year, current month and location. Cranial nerves: 2-12 grossly intact - Labs CBC & Chem 7: 11/02/21 03:51 11/02/21 03:51 Labs: Abnormal Lab Results - Last 24 Hours (Table) 11/02/21 11/02/21 Range/Units 03:51 03:51 RBC 4.08 L (4.40-5.60) X 10*6/uL Hgb 12.8 L (13.0-17.0) g/dL Hct 38.3 L (39.6-50.0) % Total Bilirubin 0.20 L (0.30-1.20) mg/dL Total Protein 5.9 L (6.2-8.2) g/dL Assessment and Plan Assessment: 1. Recurrent seizure, status post discontinuation of antiepileptic medication 2. Reported history of seizure disorder secondary to head injuries 3. Reported recent diagnosis of lung cancer, must rule out brain metastases as possible etiology of recurrent seizure 4. History of prostate cancer 5. Reported history of mild dementia Plan: 1. Stat loading dose of IV Keppra, 1500 mg, with maintenance dose of 500 mg twice daily-done 2. Will cancel MRI as pt has recently had one, and brain mets have been ruled out 3. The pt is neurologically stable for discharge 4. Rx for Keppra 500mg po BID 5. Pt advised to call his neurologist on Wednesday Time with Patient: Less than 30 (Spent 15 minutes with patient via telemedicine)
--- NOTE | 2021-11-02 12:33 | P.DS ---
Providers Date of admission: 11/01/21 11:35 Expected date of discharge: 11/02/21 Attending physician: Juan Fernandez MD Consults: 11/01/21 11:35 Consult Physician Urgent Consulting Provider: Ximena Maher Consult Reason/Comments: Status epilepticus Do you want consulting provider notified?: Yes Primary care physician: Jasvir Chau MD Hospital Course: 61-year-old male who presents to the emergency department after having 2 seizures at home. No prodromal symptoms according to patient. Symptoms started suddenly. Patient has history of seizures for the last couple of years secondary to a closed head injury however he stopped his seizure medications about 6 months ago according to his neurologist recommendation after he was seizure free for 2 years. Patient was recently diagnosed with lung cancer localized in the right upper lobe and was scheduled for lobectomy. Patient has been under a lot of stress because of that. Patient does not drink and is not doing any drugs according to the . Patient has had no recent fevers chills. No complaints of chest pain, difficulty breathing, no abdominal pain, no nausea vomiting diarrhea. In the emergency department he had his third seizure which lasted for a few minutes, it was followed by postictal confusion. No urinary incontinence or tongue biting. Laboratory workup was unremarkable except for mild leukocytosis at 12,000, calcium at 10.3. He was not febrile. Patient was admitted, was seen by neurology. He did not have any recurrent seizures during the admission. He was loaded with Keppra 1.5 g IV then started on 500 mg by mouth twice a day. Patient had a recent MRI of the brain last month and therefore it was not done this admission. Today he was cleared by neurology for discharge. He will be discharged home in stable condition. He was instructed to follow-up with his neurologist. Plan - Discharge Summary Discharge Rx Participant: No New Discharge Prescriptions: New levETIRAcetam [Keppra] 500 mg PO Q12HR 30 Days #60 tab Continue amLODIPine BESYLATE/BENAZEPRIL [amLODIPine BESYLATE/BENAZEPRIL 5-20 mg] 1 cap PO BID Calcium Carbonate/Vitamin D3 [Calcium 500 mg-Vit D3 5 mcg (200 Unit)] 1 tab PO DAILY Donepezil [Aricept] 10 mg PO HS Discharge Medication List amLODIPine BESYLATE/BENAZEPRIL [amLODIPine BESYLATE/BENAZEPRIL 5-20 mg] 1 cap PO BID 11/04/19 [History] Donepezil [Aricept] 10 mg PO HS 09/23/21 [History] Calcium Carbonate/Vitamin D3 [Calcium 500 mg-Vit D3 5 mcg (200 Unit)] 1 tab PO DAILY 11/01/21 [History] levETIRAcetam [Keppra] 500 mg PO Q12HR 30 Days #60 tab 11/02/21 [Rx] Follow up Appointment(s)/Referral(s): Jasvir Chau MD [Primary Care Provider] - 1-2 days Patient Instructions/Handouts: Seizure/Epilepsy Discharge Instructions & Follow-Up
== END 2021-11-02 13:21 | disposition home or self-care (01) ==
LOC: EC 09:36 → INTOOBSV 11:35 → 4SSUR 11:35 → UNDODISIN 11-02 13:21
PROVIDERS: ADMIT Internal Medicine; ATTEND Internal Medicine
DX: G40.909 Epilepsy, unspecified, not intractable, without status epilepticus (principal); C34.11 Malignant neoplasm of upper lobe, right bronchus or lung; I10 Essential (primary) hypertension; G43.909 Migraine, unspecified, not intractable, without status migrainosus; R79.89 Other specified abnormal findings of blood chemistry; D72.829 Elevated white blood cell count, unspecified; F03.90 Unspecified dementia, unspecified severity, without behavioral disturbance, psychotic disturbance, mood disturbance, and anxiety; F17.200 Nicotine dependence, unspecified, uncomplicated; Z63.79 Other stressful life events affecting family and household; Z79.899 Other long term (current) drug therapy; Z85.46 Personal history of malignant neoplasm of prostate; Z87.820 Personal history of traumatic brain injury; Z79.890 Hormone replacement therapy; Z80.1 Family history of malignant neoplasm of trachea, bronchus and lung; Z71.9 Counseling, unspecified
CPT/HCPCS: 96361 ×2; 96374; 99285; 36415; 93005; 80053 ×2; 83735; 85025 ×2; 80306; 80320; 70450; G0378 ×2; J2060; J1953

== ENCOUNTER → 2022-01-26 | Outpatient (CLI) | payer BC | END | disposition home or self-care (01) | LOC: LABWHC1 08:26 | PROVIDERS: ATTEND Radiology Radiation Oncology | DX: C34.11 Malignant neoplasm of upper lobe, right bronchus or lung (principal); C61 Malignant neoplasm of prostate; C77.5 Secondary and unspecified malignant neoplasm of intrapelvic lymph nodes; R91.8 Other nonspecific abnormal finding of lung field | CPT/HCPCS: 36415; 84153 ==

== ENCOUNTER 2022-06-08 10:52 | Day surgery (SDC) | payer BC ==
[~2022-06-08 10:52] MED LIST: ACETAMINOPHEN TAB 500 MG TAB PO PRN; HEPARIN SODIUM,PORCINE/PF 5,000 UNIT/0.5 ML SYRINGE SQ PRN; Pre Op ABX Message 1 EACH MISC MISCELLANE ONE
[2022-06-08] MEDS ORDERED: LIDOCAINE 1% (10MG/ML) FOR IV START INTRADERMA PRN (11:02)
[2022-06-08] MEDS ORDERED: ONDANSETRON 4 MG/2 ML VIAL IVP ONE (11:02)
[2022-06-08] MEDS ORDERED: LACTATED RINGERS 1,000 ML IV SCH (11:02)
[2022-06-08] MEDS ORDERED: MIDAZOLAM 2 MG/2 ML VIAL IV PRN (11:02)
[2022-06-08] MEDS ORDERED: HYDROmorphone 0.5 MG/0.5 ML SYRINGE IVP PRN (11:02)
[2022-06-08] MEDS ORDERED: DEXAMETHASONE SOD PHOSPHATE 4 MG/ML 1 ML VIAL IV ONE (11:02)
[2022-06-08 11:21] VITALS: RESP 16; TEMP 100.2
[2022-06-08] MEDS ORDERED: PHENYLEPHRINE-0.9% NACL SYG 1,000 MCG/10 ML SYRINGE ONE (11:49)
[2022-06-08] MEDS ORDERED: MIDAZOLAM 2 MG/2 ML VIAL ONE (11:49)
[2022-06-08] MEDS ORDERED: PROPOFOL 10 MG/ML 20 ML VIAL IV ONE (11:49)
[2022-06-08] MEDS ORDERED: LIDOCAINE 2% INJ 20 MG/ML (2 ML VIAL) ONE (11:49)
[2022-06-08] MEDS ORDERED: fentaNYL (PF) 50 MCG/ML 2 ML AMP ONE (11:49)
[2022-06-08] MEDS ORDERED: LIDOCAINE 2% (PF) 20 MG/ML 10 ML AMP SQ ONE ×2 (12:00)
[2022-06-08] MEDS ORDERED: HEPARIN SODIUM,PORCINE 100 UNIT/ML 5 ML VIAL IV ONE ×2 (12:01)
[2022-06-08] MEDS ORDERED: SODIUM CHLORIDE 0.9% 50 ML with ceFAZolin 2,000 MG IV ONE ×2 (12:10)
[2022-06-08] MEDS ORDERED: NALOXONE 0.4 MG/ML 1 ML VIAL IV PRN (12:39)
[2022-06-08] MEDS ORDERED: ACETAMINOPHEN TAB 325 MG TAB PO PRN (12:39)
[2022-06-08] MEDS ORDERED: HYDROcodone/APAP 5-325MG 1 EACH TAB PO PRN (12:39)
--- NOTE | 2022-06-08 12:42 | P.OP ---
Date of Procedure: 06/08/22 Procedure(s) Performed: PREOPERATIVE DIAGNOSIS: Lung cancer POSTOPERATIVE DIAGNOSIS: Same PROCEDURE: Port-A-Cath placement with fluoroscopic and ultrasound guidance SURGEON: Marylin EBL: Minimal ANESTHESIA: Sedation COMPLICATIONS: None OPERATIVE PROCEDURE: Patient was brought and placed on the operative table in the supine position. The patient was sedated per anesthesia that time. The chest and neck were prepped and draped in usual sterile fashion. The ultrasound probe was used to identify the location of the right internal jugular vein. The skin was localized with lidocaine. The Seldinger needle was advanced into the IJ under ultrasound guidance. The wire was advanced through the needle under fluoroscopic guidance into the superior vena cava. A port pocket was created in the right infraclavicular location. The catheter was tunneled from the wire entrance site to the port pocket. The port was then connected to the catheter. The dilator introducer was threaded over the guidewire. The guidewire and dilator were then removed. The catheter was advanced through the introducer and introducer was then removed. The tip was seen to be in the right atrial junction via fluoroscopy. A picture of the radiograph showing the tip at the radial digital junction was taken. Port was flushed with both saline and a Hep- Lock solution. There was good flow both in and out of the port. The port was sutured in underlying tissues using 3-0 silk sutures. The subcutaneous tissues were reapproximated using 3-0 Vicryl sutures and the skin at both locations using 4-0 Monocryl sutures. Skin glue and sterile dressings then applied. DISPOSITION: Stable to recovery room
[2022-06-08] MEDS ORDERED: LACTATED RINGERS 1,000 ML IV ONE (12:55)
--- NOTE | 2022-06-08 13:06 | XR ---
EXAMINATION TYPE: XR chest 1V confirm line [facility] DATE OF EXAM: 06/08/2022 COMPARISON: 09/25/2021 INDICATION: Line placement TECHNIQUE: Single frontal view of the chest is obtained. FINDINGS: The heart size is normal. The pulmonary vasculature is normal. The lungs are clear. Additional right-sided catheter with tip in the superior vena cava region. No pneumothorax is evident . IMPRESSION: 1. Placement of a right-sided catheter with tip in the superior vena cava region.
--- NOTE | 2022-06-08 14:03 | FL ---
EXAMINATION TYPE: FL guided central line placemt HISTORY: Fluoroscopy time Impression: 1. Fluoroscopy support provided to the referring physician.
[2022-06-08 14:57] VITALS: BP 98/59; PULSE 72
== END 2022-06-08 15:10 | disposition home or self-care (01) ==
LOC: OR 10:52
PROVIDERS: ATTEND Surgery
DX: Z45.2 Encounter for adjustment and management of vascular access device (principal); C34.11 Malignant neoplasm of upper lobe, right bronchus or lung
CPT/HCPCS: 36561; 76937; 77001; C1788; J2250; J1642; J1100; J2001 ×2; J2405; J0690; J3010; J2370; J2704

== ENCOUNTER → 2022-07-10 | Outpatient (CLI) | payer BC | END | disposition home or self-care (01) | LOC: LABWHC1 15:02 | PROVIDERS: ATTEND Radiology Radiation Oncology | DX: C34.11 Malignant neoplasm of upper lobe, right bronchus or lung (principal); C61 Malignant neoplasm of prostate; R91.8 Other nonspecific abnormal finding of lung field; C77.5 Secondary and unspecified malignant neoplasm of intrapelvic lymph nodes; Z92.21 Personal history of antineoplastic chemotherapy; Z79.899 Other long term (current) drug therapy | CPT/HCPCS: 36415; 84153 ==

== ENCOUNTER → 2022-09-21 | Outpatient (CLI) | payer MEDICARE ==
[2022-09-21 13:34] LABS: African American GFR (CKD) >90 (>60 ml/min/1.73 sqM); Blood Urea Nitrogen 17 mg/dL (9-20); Non-African American GFR(CKD) 83 (>60 ml/min/1.73 sqM)
--- NOTE | 2022-09-21 18:21 | CT ---
EXAMINATION TYPE: CT chest w con DATE OF EXAM: 09/21/2022 COMPARISON: PET CT 10/10/[address] 09/05/2021 HISTORY: 62-year-old male C3 4.11, Follow up for lung cancer. TECHNIQUE: Contiguous axial scanning of the chest after the administration of 100ml mL of Isovue 300. Coronal/sagittal reconstructions performed. CT DLP: 443mGycm. Automatic exposure control utilized for a dose reduction. FINDINGS: Right anterior chest wall injection port with catheter tip at the mid to lower SVC. The heart is normal size. Small anterior pericardial effusion measuring 7 mm thick. Aorta normal caliber with conventional arch vessel branching anatomy. No thoracic lymphadenopathy by CT size criteria. The previous right hilar lymph node has resolved. Patient is status post right upper lobectomy. Moderate to advanced emphysema. No consolidation or pleural effusion. * The anterior subpleural 5 mm pulmonary nodule at the right midlung and adjacent just medially, axi al images 26 are nonspecific and can be reassessed at follow-up. * 5 mm posterior left midlung pulmonary nodule, axial image 37 not well seen previously, also nonspe cific. Visualized upper abdomen shows no gross abnormality. Bones: Mild degenerative disc disease throughout. Some DISH in the lower thoracic spine. IMPRESSION: 1. COPD with moderate to advanced emphysema and interval postsurgical change of right upper lobectomy . The previous right upper lobe mass and right hilar lymphadenopathy has resolved. 2. A few pulmonary nodules measuring up to 5 mm were not well seen previously. These are nonspecific and could be infectious/inflammatory. Reassess at follow-up. Otherwise, no definite recurrence or met astatic disease.
== END | disposition home or self-care (01) ==
LOC: RADPROMAIN 12:30
PROVIDERS: ATTEND Internal Medicine Hematology & Oncology
DX: C34.11 Malignant neoplasm of upper lobe, right bronchus or lung (principal); C61 Malignant neoplasm of prostate; I10 Essential (primary) hypertension; J43.9 Emphysema, unspecified; R91.8 Other nonspecific abnormal finding of lung field; Z90.2 Acquired absence of lung [part of]
CPT/HCPCS: 82565; 84520; 71260; J1642; Q9967

== ENCOUNTER 2022-12-29 17:47 | Emergency (ER) | payer MEDICARE ==
[2022-12-29] MEDS ORDERED: KETOROLAC 15 MG/ML 1 ML VIAL IVP STA (18:59)
[2022-12-29] MEDS ORDERED: HYDROmorphone 0.5 MG/0.5 ML SYRINGE IVP STA (19:00)
--- NOTE | 2022-12-29 19:23 | ED ---
General Adult HPI - General Source: patient, RN notes reviewed, old records reviewed Mode of arrival: ambulatory <Jerrod Mulligan - Last Filed: 12/29/22 20:54> <Juan Rod - Last Filed: 12/29/22 22:40> - General Chief complaint: Abdominal Pain Stated complaint: pressure on rectum Time Seen by Provider: 12/29/22 18:50 - History of Present Illness Initial comments: This is a 62-year-old male presents emergency department with past medical history significant for lung cancer for which she was receiving monthly chemotherapy for prevention. Patient also has a history of prostate cancer. Patient states for last month and a half he has been having quite a few bowel movements every day and having quite a bit of rectal pain. Patient denies any abdominal pain. Patient is any fever chills or cough. Patient denies any constipation. Patient states he has had a couple episodes of diarrhea. Patient states he has had a little bleeding couple of occasions but nothing recently. (Jerrod Mulligan) - Related Data Home Medications Medication Instructions Recorded Confirmed amLODIPine BESYLATE/BENAZEPRIL 1 cap PO BID 11/04/19 06/04/22 [amLODIPine BESYLATE/BENAZEPRIL 5-20 mg] Donepezil [Aricept] 10 mg PO HS 09/23/21 06/04/22 Folic Acid 1 mg PO DAILY 06/04/22 06/04/22 Previous Rx's Medication Instructions Recorded levETIRAcetam [Keppra] 500 mg PO Q12HR 30 Days #60 tab 11/02/21 HYDROcodone/APAP 5-325MG [[place] 1 tab PO Q6HR PRN 3 Days #6 tab 06/08/22 5-325] Allergies Allergy/AdvReac Type Severity Reaction Status Date / Time No Known Allergies Allergy Verified 12/29/22 18:23 Review of Systems ROS Other: All systems not noted in ROS Statement are negative. <Jerrod Mulligan - Last Filed: 12/29/22 20:54> ROS Other: All systems not noted in ROS Statement are negative. <Juan Rod - Last Filed: 12/29/22 22:40> ROS Statement: Those systems with pertinent positive or pertinent negative responses have been documented in the HPI. Past Medical History Past Medical History: Cancer, Hypertension, Seizure Disorder Additional Past Medical History / Comment(s): LAST SEIZURE MAR 2019 APPROX , PAST HISTORY OF MIGRAINE, PROSTATE CANCER , ABNORMAL CT SCAN OF LUNG, Chemo infusions. History of Any Multi-Drug Resistant Organisms: None Reported Past Surgical History: Tonsillectomy Additional Past Surgical History / Comment(s): COLONOSCOPY, top 1/3 of lung removed october 2021 rt Past Anesthesia/Blood Transfusion Reactions: No Reported Reaction Past Psychological History: No Psychological Hx Reported Smoking Status: Former smoker Past Alcohol Use History: None Reported Past Drug Use History: None Reported - Past Family History Father Family Medical History: Cancer Additional Family Medical History / Comment(s): LUNG CANCER <Jerrod Mulligan - Last Filed: 12/29/22 20:54> General Exam <Jerrod Mulligan - Last Filed: 12/29/22 20:54> - General Exam Comments Initial Comments: GENERAL: Patient is well-developed and well-nourished. Patient is nontoxic and well- hydrated and is in mild distress. ENT: Neck is soft and supple. No significant lymphadenopathy is noted. Oropharynx is clear. Moist mucous membranes. Neck has full range of motion without eliciting any pain. EYES: The sclera were anicteric and conjunctiva were pink and moist. Extraocular movements were intact and pupils were equal round and reactive to light. Eyelids were unremarkable. PULMONARY: Unlabored respirations. Good breath sounds bilaterally. No audible rales rhonchi or wheezing was noted. CARDIOVASCULAR: There is a regular rate and rhythm without any murmurs gallops or rubs. ABDOMEN: Soft and nontender with normal bowel sounds. RECTAL: No fissure hemorrhoid or areas of bleeding noted. On digital exam patient had quite a bit pain anteriorly in the rectum. No masses were palpated they're either SKIN: Skin is clear with no lesions or rashes and otherwise unremarkable. NEUROLOGIC: Patient is alert and oriented x3. Cranial nerves II through XII are grossly intact. Motor and sensory are also intact. Normal speech, volume and content. Symmetrical smile. MUSCULOSKELETAL: Normal extremities with adequate strength and full range of motion. No lower extremity swelling or edema. No calf tenderness. LYMPHATICS: No significant lymphadenopathy is noted PSYCHIATRIC: Normal psychiatric evaluation. (Jerrod Mulligan) Course Vital Signs 12/29/22 18:23 Temperature 98.4 F Pulse Rate 83 Respiratory 20 Rate Blood Pressure 126/72 O2 Sat by Pulse 93 L Oximetry Medical Decision Making - Lab Data Result diagrams: 12/29/22 19:27 12/29/22 19:27 <Jerrod Mulligan - Last Filed: 12/29/22 20:54> - Lab Data Result diagrams: 12/29/22 19:27 12/29/22 19:27 <MarcelJuan - Last Filed: 12/29/22 22:40> - Medical Decision Making Was pt. sent in by a medical professional or institution ([facility], ADVANCED MANUFACTURING TECHNICIAN, urgent care, hospital, or fci...) When possible be specific @ -[No] Did you speak to anyone other than the patient for history (EMS, parent, family, police, friend...)? What history was obtained from this source @ -[No] Did you review nursing and triage notes (agree or disagree)? Why? @ -[I reviewed and agree with nursing and triage notes] Were old charts reviewed (outside hosp., previous admission, EMS record, old EKG, old radiological studies, urgent care reports/EKG's, fci records)? Report findings @ -[No old charts were reviewed] Differential Diagnosis (chest pain, altered mental status, abdominal pain women, abdominal pain men, vaginal bleeding, weakness, fever, dyspnea, syncope, headache, dizziness, GI bleed, back pain, seizure, CVA, palpatations, mental health, musculoskeletal)? @ -Rectal abscess, fissure, internal hemorrhoids, external hemorrhoids, rectal mass this is not all inclusive list EKG interpreted by me (3pts min.). @ -[As above] X-rays interpreted by me (1pt min.). @ -[None done] CT interpreted by me (1pt min.). @ -[None done] U/S interpreted by me (1pt. min.). @ -[None done] What testing was considered but not performed or refused? (CT, X-rays, U/S, labs)? Why? @ -[None] What meds were considered but not given or refused? Why? @ -[None] Did you discuss the management of the patient with other professionals (professionals i.e. [facility]ru[facility], ADVANCED MANUFACTURING TECHNICIAN, lab, RT, psych nurse, high school social studies teacher, computer applications engineer, teacher, tax compliance officer, telehealth case manager)? Give summary @ -[No] Was smoking cessation discussed for >3mins.? @ -[No] Was critical care preformed (if so, how long)? @ -[No] Were there social determinants of health that impacted care today? How? (Homelessness, low income, unemployed, alcoholism, drug addiction, transportation, low edu. Level, literacy, decrease access to med. care, intermediate, rehab)? @ -[No] Was there de-escalation of care discussed even if they declined (Discuss DNR or withdrawal of care, Hospice)? DNR status @ -[No] What co-morbidities impacted this encounter? (DM, HTN, Smoking, COPD, CAD, Cancer, CVA, ARF, Chemo, Hep., AIDS, mental health diagnosis, sleep apnea, morbid obesity)? @ -[None] Was patient admitted / discharged? Hospital course, mention meds given and route, prescriptions, significant lab abnormalities, going to OR and other pertinent info. @ -Patient was given pain medicines in the emergency department and a CT of the pelvis was ordered as well as lab work. Patient will be signed out to Dr. Rod at 9:00 and he will take over the care of this patient (Jerrod Mulligan) Patient signed out to me pending results of CT imaging. Has a history of prostate cancer with remote radiation 2 years ago as well as current chemotherapy for lung cancer. The last approximately 1.5 month he has been having a rectal fullness sensation after using the restroom. Also a burning sensation. Unknown what is causing it. Unknown what is causing it. Hasn't spoken with his doctors regarding this. No significant hematochezia or melena. Has had chronic loose stools. Workup so far has been within acceptable limits. Labs are unremarkable. Patient has received Dilaudid and Toradol for pain control which has resolved his symptoms. CT imaging returned and was interpreted by myself as revealing some mild inflammation of the rectal wall, possible mild proctitis. This was corroborated with radiology. No other obvious acute intra-abdominal process. Patient has no recent history of radiation. And did not start having symptoms until last month and a half. No history of symptoms when he was receiving radiation. I discussed with the patient. He is currently pain-free. I did offer admission which she declined. He will has appointments with his radiation oncologist as well as his oncologist within the next week and would prefer to follow up with them on an outpatient basis. I believe this is reasonable. We did discuss this is likely related to his cancer therapy, as he is denying any foreign body insertion into the rectum, or any other insertion in the rectum. Labs and imaging do not support this as being infectious. He has no fever. He has no leukopenia. I do not believe that antibiotics are required at this time. Symptoms have been ongoing for over a month. He was in agreement with this plan and will follow up closely with his oncology team. Strict return precautions discussed. I instructed the patient to follow up with their PCP in the next 1-3 days. I explained that the patient should return to the emergency department if they experience any worsening symptoms. Strict return precautions were discussed with the patient. The patient expressed understanding of these instructions. I a nswered all questions that the patient had. The patient was discharged home in good condition with their prescriptions and follow up information. Undiagnosed new proble wth uncertain prognosis? @ -No Drug Therapy requiring intensive monitoring for toxicity (Heparin,Niro, Insulin, Cardizem)? @ -No Wre any procedures done? @ -No Diagnosis/symptom? @ -Proctitis, in the setting of current chemotherapy for lung cancer Acute, or Chronic, or Acute on Chronic? @ -Acute Uncomplicated (without systemic symptoms) or Complicated (systemic symptoms)? @ -Complicated Side effects of treatment? @ -No Exacerbation, Progression,or Severe Exacerbation? @ -No Poses a threat to life or bodily function? How? (Chest pain, [place], [place], pneumonia, PE, COPD, DKA, ARF, appy, cholecystitis, CVA, Diverticulitis, Homicidal, Suicidal, threat to staff...an all critical care pts) @ -No (Juan Rod) - Lab Data Lab Results 12/29/22 12/29/22 Range/Units 19:27 19:27 WBC 7.7 (3.8-10.6) k/uL RBC 3.72 L (4.30-5.90) m/uL Hgb 12.3 L (13.0-17.5) gm/dL Hct 35.2 L (39.0-53.0) % MCV 94.7 (80.0-100.0) fL MCH 33.0 (25.0-35.0) pg MCHC 34.8 (31.0-37.0) g/dL RDW 12.5 (11.5-15.5) % Plt Count 216 (150-450) k/uL MPV 7.4 Neutrophils % 73 % Lymphocytes % 17 % Monocytes % 6 % Eosinophils % 3 % Basophils % 0 % Neutrophils # 5.6 (1.3-7.7) k/uL Lymphocytes # 1.3 (1.0-4.8) k/uL Monocytes # 0.5 (0-1.0) k/uL Eosinophils # 0.3 (0-0.7) k/uL Basophils # 0.0 (0-0.2) k/uL Sodium 133 L (137-145) mmol/L Potassium 4.2 (3.5-5.1) mmol/L Chloride 102 (98-107) mmol/L Carbon Dioxide 25 (22-30) mmol/L Anion Gap 6 mmol/L BUN 14 (9-20) mg/dL Creatinine 0.80 (0.66-1.25) mg/dL Est GFR (CKD-EPI)AfAm >90 (>60 ml/min/1.73 sqM) Est GFR (CKD-EPI)NonAf >90 (>60 ml/min/1.73 sqM) Glucose 89 (74-99) mg/dL Calcium 9.1 (8.4-10.2) mg/dL Total Bilirubin 0.5 (0.2-1.3) mg/dL AST 19 (17-59) U/L ALT 17 (4-49) U/L Alkaline Phosphatase 84 (38-126) U/L Total Protein 6.5 (6.3-8.2) g/dL Albumin 4.1 (3.5-5.0) g/dL Amylase 40 (30-110) U/L Lipase 54 (23-300) U/L Disposition <Jerrod Mulligan - Last Filed: 12/29/22 20:54> Is patient prescribed a controlled substance at d/c from ED?: No Time of Disposition: 22:25 <Juan Rod - Last Filed: 12/29/22 22:40> Clinical Impression: Proctitis Disposition: HOME SELF-CARE Condition: Good Instructions (If sedation given, give patient instructions): Proctitis (ED) Referrals: Jose Guadalupe Paulino MD [Primary Care Provider] - 1-2 days Samir Montenegro MD [STAFF PHYSICIAN] - 1-2 days
[2022-12-29 19:43] LABS: Basophils % (A) 0 %; Eosinophils # (A) 0.3 k/uL (0-0.7); Eosinophils % (A) 3 %; HCT 35.2 % (39.0-53.0); HGB 12.3 gm/dL (13.0-17.5); Lymphocytes # (A) 1.3 k/uL (1.0-4.8); Lymphocytes % (A) 17 %; MCHC 34.8 g/dL (31.0-37.0); MCV 94.7 fL (80.0-100.0); Mean Platelet Volume 7.4; Monocytes # (A) 0.5 k/uL (0-1.0); Monocytes % (A) 6 %; Neutrophils # (A) 5.6 k/uL (1.3-7.7); Neutrophils % (A) 73 %; Platelet Count 216 k/uL (150-450); RBC 3.72 m/uL (4.30-5.90); RDW 12.5 % (11.5-15.5); WBC 7.7 k/uL (3.8-10.6)
[2022-12-29 20:06] LABS: ALT 17 U/L (4-49); AST 19 U/L (17-59); African American GFR (CKD) >90 (>60 ml/min/1.73 sqM); Albumin 4.1 g/dL (3.5-5.0); Alkaline Phosphatase 84 U/L (38-126); Amylase 40 U/L (30-110); Anion Gap 6 mmol/L; Blood Urea Nitrogen 14 mg/dL (9-20); Calcium 9.1 mg/dL (8.4-10.2); Carbon Dioxide 25 mmol/L (22-30); Chloride 102 mmol/L (98-107); Glucose 89 mg/dL (74-99); Lipase 54 U/L (23-300); Non-African American GFR(CKD) >90 (>60 ml/min/1.73 sqM); Potassium 4.2 mmol/L (3.5-5.1); Sodium 133 mmol/L (137-145); Total Bilirubin 0.5 mg/dL (0.2-1.3); Total Protein 6.5 g/dL (6.3-8.2)
--- NOTE | 2022-12-29 21:43 | CT ---
EXAMINATION TYPE: CT abdomen pelvis w con CT DLP: 671.2 mGycm, Automated exposure control for dose reduction was used. DATE OF EXAM: 12/29/2022 9:37 PM COMPARISON: PET 10/10/2021 CLINICAL INDICATION:Male, 62 years old with history of abdominal pain; generalized abd pain TECHNIQUE: Axial CT of the abdomen and pelvis. Sagittal and coronal reformats were created on a [employer] workstation. Contrast used:100ml mL of Isovue 300 with IV Contrast, (none if empty) Oral contrast used: without Oral Contrast (none if empty) FINDINGS: LOWER CHEST: Unremarkable ABDOMEN LIVER: Unremarkable GALLBLADDER AND BILE DUCTS: Unremarkable. PANCREAS: Unremarkable. SPLEEN: Unremarkable. ADRENAL GLANDS: Unremarkable. KIDNEYS AND URETERS: No evidence of hydronephrosis or renal calculus. The ureters are unremarkable. PELVIS BLADDER: Unremarkable REPRODUCTIVE: Unremarkable. ABDOMEN & PELVIS STOMACH AND BOWEL: There is some rectal wall thickening measuring up to 8 mm. No evidence of bowel ob struction. The appendix is normal. PERITONEUM/RETROPERITONEUM: No evidence of pneumoperitoneum or free fluid. VASCULATURE: Mild atherosclerotic calcifications are present throughout the abdominal aorta and its b ranches. No evidence of aortic aneurysm. MUSCULOSKELETAL: No acute osseous abnormalities. Mild disc degeneration changes are present throughou t the thoracolumbar spine. LYMPH NODES: No gross evidence for lymphadenopathy. SOFT TISSUE/ABDOMINAL WALL: Fat-containing umbilical hernia. IMPRESSION: 1. No definitive acute intra-abdominal process. There is some mild rectal wall thickening which coul d represent proctitis. No other finding visualized. 2. No evidence for lymphadenopathy.
[2022-12-29 22:52] VITALS: BP 106/67; PULSE 74; RESP 18; TEMP 98.9
== END 2022-12-29 22:52 | disposition home or self-care (01) ==
LOC: EC 17:47
DX: K62.89 Other specified diseases of anus and rectum (principal); I10 Essential (primary) hypertension; Z87.891 Personal history of nicotine dependence; Z79.899 Other long term (current) drug therapy
CPT/HCPCS: 36415; 80053; 82150; 83690; 85025; 74177; 99284; 96374; 96375; J1885; J1170; Q9967

== ENCOUNTER → 2023-01-05 | Outpatient (CLI) | payer MEDICARE ==
--- NOTE | 2023-01-05 13:47 | CT ---
EXAMINATION TYPE: CT chest w con DATE OF EXAM: 01/05/2023 COMPARISON: 09/21/2022 HISTORY: Lung ca, recent partial lobe removal CT DLP: 264.8 mGycm, Automated exposure control for dose reduction was used. CONTRAST: Performed injected with 100 mL of Isovue 300. TECHNIQUE: Axial images were obtained at 5 mm thick sections. Reconstructed images are reviewed on [employer] computer in the coronal plane. FINDINGS: Portion of the thyroid visualized is normal. Emphysematous changes are present. There is a 0.5 cm faint density near the major fissure left mid lung. Series 4 image 37. This is a ne w finding. A 0.6 cm nodule in the posterior left midlung level is stable. Series 4 image 31 No enlarged mediastinal or hilar adenopathy is evident. Couple small shoddy lymph nodes are present in the aortopulmonic window. The ascending aorta diameter at the level of the main pulmonary artery is 3.3 cm. The main pulmonary artery diameter at the bifurcation is 2.5 cm. There is a small pericar dial effusion present. Limited CT sections are obtained through the upper abdomen. Abdomen is essentially unremarkable. IMPRESSIONS: 1. New 0.5 cm soft tissue density left midlung. 2. An additional 0.6 cm nodule appears essentially stable from the comparison study. 3. Emphysematous changes in the lung amin.
== END | disposition home or self-care (01) ==
LOC: RADPROMAIN 10:09
PROVIDERS: ATTEND Internal Medicine Hematology & Oncology
DX: C34.11 Malignant neoplasm of upper lobe, right bronchus or lung (principal); J43.9 Emphysema, unspecified; J98.4 Other disorders of lung; R91.1 Solitary pulmonary nodule
CPT/HCPCS: 71260; Q9967

== ENCOUNTER → 2023-04-26 | Outpatient (CLI) | payer MEDICARE ==
[2023-04-26 11:18] LABS: African American GFR (CKD) >90 (>60 ml/min/1.73 sqM); Blood Urea Nitrogen 11 mg/dL (9-20); Non-African American GFR(CKD) >90 (>60 ml/min/1.73 sqM)
--- NOTE | 2023-04-26 12:21 | CT ---
EXAMINATION TYPE: CT chest w con CT DLP: 211.8 mGycm, Automated exposure control for dose reduction was used. DATE OF EXAM: 04/26/2023 11:54 AM COMPARISON: 01/05/2023., Prior PET/CT 10/10/2021 CLINICAL INDICATION:Male, 62 years old with history of C34.11 MALIGNANT NEOPLASM OF UPPER LOBE, RIGHT BRO; [facility], follow up lung ca TECHNIQUE: Multiple axial images were obtained through the chest. Sagittal and coronal reformats were created for review. Contrast used:100 mL of Isovue 300 with IV Contrast (None if empty) Oral contrast used: (None if empty) FINDINGS: LUNGS/ PLEURA: Severe emphysema changes throughout the lungs. Few scattered right middle lobe periphe ral nodular densities which could represent atelectasis, stable. Left intrafissural lymph nodes along the major fissure, stable. No new or enlarging masses. No focal consolidation or pneumothorax. Posts urgical changes to the right lung. No residual tissue definitively visualized. AIRWAY: Patent and unremarkable. HEART: Size within normal limits. MEDIASTINUM: No gross evidence of adenopathy. VASCULATURE: No aortic aneurysm. Right chest wall [id number] tip terminating in the superior vena cava. 2 right renal arteries visualized. MUSCULOSKELETAL: No acute osseous abnormalities SOFT TISSUES/LYMPH NODES: Unremarkable. LOWER NECK: No significant findings. UPPER ABDOMEN: No significant findings. IMPRESSION: 1. Postsurgical changes right lung without evidence for recurrence or lymphadenopathy to suggest met astatic disease. 2. Severe emphysema.
== END | disposition home or self-care (01) ==
LOC: RADPROMAIN 10:27
PROVIDERS: ATTEND Internal Medicine Hematology & Oncology
DX: Z03.89 Encounter for observation for other suspected diseases and conditions ruled out (principal); C34.11 Malignant neoplasm of upper lobe, right bronchus or lung; J43.9 Emphysema, unspecified; Z98.890 Other specified postprocedural states
CPT/HCPCS: 82565; 84520; 71260; 36415; J1642; Q9967

== ENCOUNTER → 2023-09-30 | Outpatient (CLI) | payer MEDICARE ==
--- NOTE | 2023-10-01 17:20 | PE ---
EXAMINATION TYPE: PET CT fusion skull to thigh DATE OF EXAM: 09/30/2023 COMPARISON: CT chest 04/26/2023 Prior PET/CT: 10/10/2021 HISTORY: Lung cancer TECHNIQUE: Following the intravenous administration of 9.97 mCi of F-18 FDG, whole body images are p erformed from the skull base to the midthigh. Images are reviewed on the computer in the coronal, ax ial, and sagittal planes. Reconstructed rotating images are created on independent workstation and r eviewed on the computer. A localization and attenuation correction CT is performed in conjunction w ith the PET scan. DLP: 434.13 mGycm SCAN: Subsequent Blood glucose: 109 mg/dL Average Mediastinum SUV: 1.99 Average Liver SUV: 2.97 FINDINGS: NECK: No abnormal uptake THORAX: No abnormal uptake ABDOMEN: No abnormal uptake PELVIS: No abnormal uptake OSSEOUS STRUCTURES: No abnormal uptake LOCALIZATION CT: No suspicious changes COMPARISON: Previous abnormal uptake within the right lateral lung field is not evident on the curren t examination IMPRESSION: 1. No suspicious changes of recurrent or metastatic lung cancer.
== END | disposition home or self-care (01) ==
LOC: RADXRMAIN 10:32
PROVIDERS: ATTEND Internal Medicine Hematology & Oncology
DX: C34.11 Malignant neoplasm of upper lobe, right bronchus or lung (principal)
CPT/HCPCS: 78815; A9552

== ENCOUNTER 2023-12-01 13:07 | Inpatient (IN) | payer MEDICARE ==
--- NOTE | 2023-12-01 13:43 | ED ---
Abdominal Pain HPI - General Source: patient, family, RN notes reviewed Mode of arrival: ambulatory Limitations: no limitations <Wendy Hatfield - Last Filed: 12/01/23 13:41> <Jerrod Mulligan - Last Filed: 12/01/23 19:56> - General Chief Complaint: Abdominal Pain Stated Complaint: bowel infection Time Seen by Provider: 12/01/23 13:20 - History of Present Illness Initial Comments: Quick Note-this is a 63-year-old male presents emergency department chief complaint of watery diarrhea over the past few weeks. Patient was seen afternoon by his GI specialist which referred him to the emergency department for further evaluation. Patient had a colonoscopy completed a few weeks ago where they found inflammation of the bowel and started him on oral mesalamine and suppository. Denies previous abdominal surgical history, fevers, nausea, vomiting, bloody stool or urine. (Wendy Hatfield) This is a 63-year-old male who comes in with a past medical history significant for lung cancer and lobectomy a few years ago patient was on immunotherapy weeks ago and but that is stopped it since that time patient has been experiencing quite a bit of diarrhea dehydration and lack of appetite. Patient is also complaining of diffuse abdominal pain. Patient had a colonoscopy and was told that he had inflammation but he does not know information of what. Dr. Montenegro saw the patient today wanted the patient to be evaluated in the emergency department and admitted and have a consult to surgery. Dr. Montenegro thought the patient was significantly dehydrated from all of the diarrhea. Patient denies any fever or chills. Patient Nuys any nausea vomiting. Patient Nuys any chest pain or difficulty breathing (Jerrod Mulligan) - Related Data Home Medications Medication Instructions Recorded Confirmed Donepezil [Aricept] 20 mg PO HS 09/23/21 12/01/23 Folic Acid 1 mg PO DAILY 06/04/22 12/01/23 Mesalamine 2.4 gm PO HS 12/01/23 12/01/23 Mesalamine [Canasa] 1,000 mg RECTAL DIRECTED 12/01/23 12/01/23 amLODIPine BESYLATE/BENAZEPRIL 1 cap PO DAILY 12/01/23 12/01/23 [amLODIPine BESYLATE/BENAZEPRIL 10-40 mg] Previous Rx's Medication Instructions Recorded levETIRAcetam [Keppra] 500 mg PO Q12HR 30 Days #60 tab 11/02/21 Allergies Allergy/AdvReac Type Severity Reaction Status Date / Time No Known Allergies Allergy Verified 12/01/23 14:39 Review of Systems ROS Other: All systems not noted in ROS Statement are negative. <Wendy Hatfield - Last Filed: 12/01/23 13:41> ROS Other: All systems not noted in ROS Statement are negative. <Jerrod Mulligan - Last Filed: 12/01/23 19:56> ROS Statement: Those systems with pertinent positive or pertinent negative responses have been documented in the HPI. Past Medical History Past Medical History: Cancer, Hypertension, Seizure Disorder Additional Past Medical History / Comment(s): LAST SEIZURE MAR 2019 APPROX , PAST HISTORY OF MIGRAINE, PROSTATE CANCER , ABNORMAL CT SCAN OF LUNG, History of Any Multi-Drug Resistant Organisms: None Reported Past Surgical History: Tonsillectomy Additional Past Surgical History / Comment(s): COLONOSCOPY, top 1/3 of lung removed october 2021 rt Past Anesthesia/Blood Transfusion Reactions: No Reported Reaction Past Psychological History: No Psychological Hx Reported Smoking Status: Former smoker Past Alcohol Use History: None Reported Past Drug Use History: None Reported - Past Family History Father Family Medical History: Cancer Additional Family Medical History / Comment(s): LUNG CANCER <Wendy Hatfield - Last Filed: 12/01/23 13:41> General Exam Limitations: no limitations <Wendy Hatfield - Last Filed: 12/01/23 13:41> <Jerrod Mulligan - Last Filed: 12/01/23 19:56> - General Exam Comments Initial Comments: Visual Physical Exam Vital signs reviewed General: Well-appearing, nontoxic, no acute distress. Head: Normocephalic, atraumatic Eyes: PERRLA, EOMI ENT: Airway patent Chest: Nonlabored breathing Skin: No visual rash, normal skin tone Neuro: Alert and oriented 3 Musculoskeletal: No gross abnormalities ([place]) GENERAL: Patient is well-developed and well-nourished. Patient is nontoxic and well- hydrated and is in mild distress. ENT: Neck is soft and supple. No significant lymphadenopathy is noted. Oropharynx is clear. Moist mucous membranes. Neck has full range of motion without eliciting any pain. EYES: The sclera were anicteric and conjunctiva were pink and moist. Extraocular movements were intact and pupils were equal round and reactive to light. Eyelids were unremarkable. PULMONARY: Unlabored respirations. Good breath sounds bilaterally. No audible rales rhonchi or wheezing was noted. CARDIOVASCULAR: There is a regular rate and rhythm without any murmurs gallops or rubs. ABDOMEN: Soft and nontender with normal bowel sounds. SKIN: Skin is clear with no lesions or rashes and otherwise unremarkable. NEUROLOGIC: Patient is alert and oriented x3. Cranial nerves II through XII are grossly in tact. Motor and sensory are also intact. Normal speech, volume and content. Symmetrical smile. MUSCULOSKELETAL: Normal extremities with adequate strength and full range of motion. LYMPHATICS: No significant lymphadenopathy is noted PSYCHIATRIC: Normal psychiatric evaluation. (Jerrod Mulligan) Course Vital Signs 12/01/23 12/01/23 12/01/23 13:32 14:12 14:50 Temperature 97.4 F L Pulse Rate 100 79 63 Respiratory 18 16 16 Rate Blood Pressure 52/40 67/41 65/42 O2 Sat by Pulse 97 95 95 Oximetry 12/01/23 12/01/23 12/01/23 15:29 16:34 17:56 Temperature Pulse Rate 67 66 68 Respiratory 16 16 16 Rate Blood Pressure 85/41 73/50 74/45 O2 Sat by Pulse 95 93 L 93 L Oximetry 12/01/23 12/01/23 12/01/23 18:19 18:49 19:27 Temperature Pulse Rate 63 70 74 Respiratory 16 18 16 Rate Blood Pressure 83/41 117/55 79/50 O2 Sat by Pulse 94 L 94 L 95 Oximetry Medical Decision Making <Wendy Hatfield - Last Filed: 12/01/23 13:41> - Lab Data Result diagrams: 12/01/23 14:10 12/01/23 14:10 <Jerrod Mulligan - Last Filed: 12/01/23 19:56> - Medical Decision Making I completed the quick note portion of this chart signed Wendy Hatfield PA-C (Wendy Hatfield) EKG is interpreted by myself. EKG shows a sinus rhythm at 79 bpm parables 144 QRS is 87 QT interval 353 QTc is 388. Patient's EKG shows no ST segment ovation or depression. Was pt. sent in by a medical professional or institution (, [facility], METAL TRADES INSTRUCTOR, urgent care, hospital, or retirement...) When possible be specific @ -Patient was sent in by Dr. Montenegro Did you speak to anyone other than the patient for history (EMS, parent, family, police, friend...)? What history was obtained from this source @ -No Did you review nursing and triage notes (agree or disagree)? Why? @ -I reviewed and agree with nursing and triage notes Were old charts reviewed (outside hosp., previous admission, EMS record, old EKG, old radiological studies, urgent care reports/EKG's, retirement records)? Report findings @ -I compared today's results with previous results his creatinine was significantly elevated compared to previous hospital admissions. Differential Diagnosis (chest pain, altered mental status, abdominal pain women, abdominal pain men, vaginal bleeding, weakness, fever, dyspnea, syncope, headache, dizziness, GI bleed, back pain, seizure, CVA, palpatations, mental health, musculoskeletal)? @ -Diarrhea, sepsis shock, urinary tract infection, pneumonia, anemia, cardiogenic shock this is not an all-inclusive list EKG interpreted by me (3pts min.). @ -As above X-rays interpreted by me (1pt min.). @ -None done CT interpreted by me (1pt min.). @ -None done U/S interpreted by me (1pt. min.). @ -None done What testing was considered but not performed or refused? (CT, X-rays, U/S, labs)? Why? @ -None What meds were considered but not given or refused? Why? @ -None Did you discuss the management of the patient with other professionals (professionals i.e. , [facility], METAL TRADES INSTRUCTOR, lab, RT, psych nurse, social services designee, powerhouse mechanic supervisor, teacher, certification officer, casework specialist)? Give summary @ -I spoke with [facility] hospitalist as well as Dr. Chowdhury about this case Was smoking cessation discussed for >3mins.? @ -No Was critical care preformed (if so, how long)? @ -No Were there social determinants of health that impacted care today? How? (Homelessness, low income, unemployed, alcoholism, drug addiction, transportation, low edu. Level, literacy, decrease access to med. care, custodial, rehab)? @ -No Was there de-escalation of care discussed even if they declined (Discuss DNR or withdrawal of care, Hospice)? DNR status @ -No What co-morbidities impacted this encounter? (DM, HTN, Smoking, COPD, CAD, Cancer, CVA, ARF, Chemo, Hep., AIDS, mental health diagnosis, sleep apnea, morbid obesity)? @ -None Was patient admitted / discharged? Hospital course, mention meds given and route, prescriptions, significant lab abnormalities, going to OR and other pertinent info. @ -Patient seemed extremely dehydrated his creatinine was 5.2 I gave the patient 4 L of fluid and his blood pressure came up to 90 systolic and he was feeling considerably better. I admitted the patient to [facility] hospitalist and I consulted Dr. Marroquin Undiagnosed new problem with uncertain prognosis? @ -No Drug Therapy requiring intensive monitoring for toxicity (Heparin, Nitro, Insulin, Cardizem)? @ -No Were any procedures done? @ -No Diagnosis/symptom? @ -Acute renal failure Acute, or Chronic, or Acute on Chronic? @ -Default Uncomplicated (without systemic symptoms) or Complicated (systemic symptoms)? @ -Acute complicated Side effects of treatment? @ -No Exacerbation, Progression, or Severe Exacerbation? @ -No Poses a threat to life or bodily function? How? (Chest pain, [place], [place], pneumonia, PE, COPD, DKA, ARF, appy, cholecystitis, CVA, Diverticulitis, Homicidal, Suicidal, threat to staff... and all critical care pts) @ -Yes this can lead to electrolyte abnormalities and arrhythmias and potential morbidity mortality Diagnosis/symptom? @ -Dehydration Acute, or Chronic, or Acute on Chronic? @ -Acute Uncomplicated (without systemic symptoms) or Complicated (systemic symptoms)? @ -Complicated Side effects of treatment? @ -None Exacerbation, Progression, or Severe Exacerbation] @ -No Poses a threat to life or bodily function? @ -Yes patient can have significantly poor perfusion secondary to dehydration (Jerrod Mulligan) - Lab Data Lab Results 12/01/23 12/01/23 12/01/23 Range/Units 14:10 14:10 14:10 WBC 4.9 (3.8-10.6) k/uL RBC 4.47 (4.30-5.90) m/uL Hgb 14.0 (13.0-17.5) gm/dL Hct 42.5 (39.0-53.0) % MCV 94.9 (80.0-100.0) fL MCH 31.4 (25.0-35.0) pg MCHC 33.0 (31.0-37.0) g/dL RDW 12.2 (11.5-15.5) % Plt Count 178 (150-450) k/uL MPV 8.2 Neutrophils % 70 % Lymphocytes % 16 % Monocytes % 10 % Eosinophils % 2 % Basophils % 0 % Neutrophils # 3.4 (1.3-7.7) k/uL Lymphocytes # 0.8 L (1.0-4.8) k/uL Monocytes # 0.5 (0-1.0) k/uL Eosinophils # 0.1 (0-0.7) k/uL Basophils # 0.0 (0-0.2) k/uL PT 10.5 (10.0-12.5) sec INR 1.0 (<1.2) APTT 40.2 H (22.0-30.0) sec Sodium 135 L (137-145) mmol/L Potassium 4.2 (3.5-5.1) mmol/L Chloride 107 (98-107) mmol/L Carbon Dioxide 14 L (22-30) mmol/L Anion Gap 14 mmol/L BUN 73 H (9-20) mg/dL Creatinine 5.21 H (0.66-1.25) mg/dL Est GFR (CKD-EPI)AfAm 12 (>60 ml/min/1.73 sqM) Est GFR (CKD-EPI)NonAf 11 (>60 ml/min/1.73 sqM) Glucose 108 H (74-99) mg/dL Plasma Lactic Acid Mauricio (0.7-2.0) mmol/L Calcium 9.4 (8.4-10.2) mg/dL Magnesium 1.9 (1.6-2.3) mg/dL Total Bilirubin 0.5 (0.2-1.3) mg/dL AST 13 L (17-59) U/L ALT 12 (4-49) U/L Alkaline Phosphatase 84 (38-126) U/L Total Protein 6.4 (6.3-8.2) g/dL Albumin 4.2 (3.5-5.0) g/dL Urine Color Urine Appearance (Clear) Urine pH (5.0-8.0) Ur Specific [place] (1.001-1.035) Urine Protein (Negative) Urine Glucose (UA) (Negative) Urine Ketones (Negative) Urine Blood (Negative) Urine Nitrite (Negative) Urine Bilirubin (Negative) Urine Urobilinogen (<2.0) mg/dL Ur Leukocyte Esterase (Negative) Urine RBC (0-5) /hpf Urine WBC (0-5) /hpf Hyaline Casts (0-2) /lpf Urine Mucus (None) /hpf Blood Type Blood Type Confirm Blood Type Recheck Bld Type Recheck Status Antibody Screen Spec Expiration Date 12/01/23 12/01/23 12/01/23 Range/Units 14:36 17:24 17:26 WBC (3.8-10.6) k/uL RBC (4.30-5.90) m/uL Hgb (13.0-17.5) gm/dL Hct (39.0-53.0) % MCV (80.0-100.0) fL MCH (25.0-35.0) pg MCHC (31.0-37.0) g/dL RDW (11.5-15.5) % Plt Count (150-450) k/uL MPV Neutrophils % % Lymphocytes % % Monocytes % % Eosinophils % % Basophils % % Neutrophils # (1.3-7.7) k/uL Lymphocytes # (1.0-4.8) k/uL Monocytes # (0-1.0) k/uL Eosinophils # (0-0.7) k/uL Basophils # (0-0.2) k/uL PT (10.0-12.5) sec INR (<1.2) APTT (22.0-30.0) sec Sodium (137-145) mmol/L Potassium (3.5-5.1) mmol/L Chloride (98-107) mmol/L Carbon Dioxide (22-30) mmol/L Anion Gap mmol/L BUN (9-20) mg/dL Creatinine (0.66-1.25) mg/dL Est GFR (CKD-EPI)AfAm (>60 ml/min/1.73 sqM) Est GFR (CKD-EPI)NonAf (>60 ml/min/1.73 sqM) Glucose (74-99) mg/dL Plasma Lactic Acid Mauricio 1.0 (0.7-2.0) mmol/L Calcium (8.4-10.2) mg/dL Magnesium (1.6-2.3) mg/dL Total Bilirubin (0.2-1.3) mg/dL AST (17-59) U/L ALT (4-49) U/L Alkaline Phosphatase (38-126) U/L Total Protein (6.3-8.2) g/dL Albumin (3.5-5.0) g/dL Urine Color Urine Appearance (Clear) Urine pH (5.0-8.0) Ur Specific [place] (1.001-1.035) Urine Protein (Negative) Urine Glucose (UA) (Negative) Urine Ketones (Negative) Urine Blood (Negative) Urine Nitrite (Negative) Urine Bilirubin (Negative) Urine Urobilinogen (<2.0) mg/dL Ur Leukocyte Esterase (Negative) Urine RBC (0-5) /hpf Urine WBC (0-5) /hpf Hyaline Casts (0-2) /lpf Urine Mucus (None) /hpf Blood Type A Negative Blood Type Confirm A Negative Blood Type Recheck No Previous Record Bld Type Recheck Status CABO Indicated Antibody Screen NEGATIVE Spec Expiration Date 12/04/2023 - 232512/01/23 Range/Units 17:49 WBC (3.8-10.6) k/uL RBC (4.30-5.90) m/uL Hgb (13.0-17.5) gm/dL Hct (39.0-53.0) % MCV (80.0-100.0) fL MCH (25.0-35.0) pg MCHC (31.0-37.0) g/dL RDW (11.5-15.5) % Plt Count (150-450) k/uL MPV Neutrophils % % Lymphocytes % % Monocytes % % Eosinophils % % Basophils % % Neutrophils # (1.3-7.7) k/uL Lymphocytes # (1.0-4.8) k/uL Monocytes # (0-1.0) k/uL Eosinophils # (0-0.7) k/uL Basophils # (0-0.2) k/uL PT (10.0-12.5) sec INR (<1.2) APTT (22.0-30.0) sec Sodium (137-145) mmol/L Potassium (3.5-5.1) mmol/L Chloride (98-107) mmol/L Carbon Dioxide (22-30) mmol/L Anion Gap mmol/L BUN (9-20) mg/dL Creatinine (0.66-1.25) mg/dL Est GFR (CKD-EPI)AfAm (>60 ml/min/1.73 sqM) Est GFR (CKD-EPI)NonAf (>60 ml/min/1.73 sqM) Glucose (74-99) mg/dL Plasma Lactic Acid Mauricio (0.7-2.0) mmol/L Calcium (8.4-10.2) mg/dL Magnesium (1.6-2.3) mg/dL Total Bilirubin (0.2-1.3) mg/dL AST (17-59) U/L ALT (4-49) U/L Alkaline Phosphatase (38-126) U/L Total Protein (6.3-8.2) g/dL Albumin (3.5-5.0) g/dL Urine Color Yellow Urine Appearance Cloudy (Clear) Urine pH 5.0 (5.0-8.0) Ur Specific [place] 1.018 (1.001-1.035) Urine Protein 1+ H (Negative) Urine Glucose (UA) Negative (Negative) Urine Ketones Negative (Negative) Urine Blood Negative (Negative) Urine Nitrite Negative (Negative) Urine Bilirubin Negative (Negative) Urine Urobilinogen <2.0 (<2.0) mg/dL Ur Leukocyte Esterase Negative (Negative) Urine RBC 1 (0-5) /hpf Urine WBC 2 (0-5) /hpf Hyaline Casts 94 H (0-2) /lpf Urine Mucus Few H (None) /hpf Blood Type Blood Type Confirm Blood Type Recheck Bld Type Recheck Status Antibody Screen Spec Expiration Date Critical Care Time Critical Care Time: Yes Total Critical Care Time: 45 <Jerrod Mulligan - Last Filed: 12/01/23 19:56> Disposition <Wendy Hatfield - Last Filed: 12/01/23 13:41> Time of Disposition: 19:56 <Jerrod Mulligan - Last Filed: 12/01/23 19:56> Clinical Impression: Acute renal failure, Dehydration, Acute diarrhea Disposition: ADMITTED IP TO THIS HOSP Referrals: Jose Guadalupe Paulino [Primary Care Provider] - 1-2 days
[2023-12-01 14:23] LABS: Basophils % (A) 0 %; Eosinophils # (A) 0.1 k/uL (0-0.7); Eosinophils % (A) 2 %; HCT 42.5 % (39.0-53.0); Lymphocytes # (A) 0.8 k/uL (1.0-4.8); Lymphocytes % (A) 16 %; MCH 31.4 pg (25.0-35.0); MCV 94.9 fL (80.0-100.0); Mean Platelet Volume 8.2; Monocytes # (A) 0.5 k/uL (0-1.0); Monocytes % (A) 10 %; Neutrophils # (A) 3.4 k/uL (1.3-7.7); Neutrophils % (A) 70 %; Platelet Count 178 k/uL (150-450); RBC 4.47 m/uL (4.30-5.90); RDW 12.2 % (11.5-15.5); WBC 4.9 k/uL (3.8-10.6)
[2023-12-01] MEDS: SODIUM CHLORIDE 0.9% 2,000 ML IV ONE ×2 (14:28→19:40)
[2023-12-01 14:39] LABS: ALT 12 U/L (4-49); AST 13 U/L (17-59); African American GFR (CKD) 12 (>60 ml/min/1.73 sqM); Albumin 4.2 g/dL (3.5-5.0); Alkaline Phosphatase 84 U/L (38-126); Anion Gap 14 mmol/L; Blood Urea Nitrogen 73 mg/dL (9-20); Calcium 9.4 mg/dL (8.4-10.2); Carbon Dioxide 14 mmol/L (22-30); Chloride 107 mmol/L (98-107); Glucose 108 mg/dL (74-99); Magnesium 1.9 mg/dL (1.6-2.3); Non-African American GFR(CKD) 11 (>60 ml/min/1.73 sqM); Potassium 4.2 mmol/L (3.5-5.1); Sodium 135 mmol/L (137-145); Total Bilirubin 0.5 mg/dL (0.2-1.3); Total Protein 6.4 g/dL (6.3-8.2)
[2023-12-01 14:43] LABS: Partial Thromboplastin Time 40.2 sec (22.0-30.0); Prothrombin Time 10.5 sec (10.0-12.5)
--- NOTE | 2023-12-01 16:12 | CT ---
EXAMINATION TYPE: CT abdomen pelvis wo con DATE OF EXAM: 12/01/2023 HISTORY: abdominal pain and diarrhea. CT DLP: 378.3 mGycm. Automated Exposure Control for Dose Reduction was Utilized. TECHNIQUE: CT scan of the abdomen and pelvis is performed without oral or IV contrast. COMPARISON: Prior PET/CT September 30, 2023. Prior CT abdomen and pelvis December 29, 2022 FINDINGS: Within the limitations of a non-contrast study, the following observations are made. LUNG BASES: No significant abnormality is appreciated. LIVER/GB: No significant abnormality is appreciated. PANCREAS: No significant abnormality is seen. SPLEEN: No significant abnormality is seen. ADRENALS: No significant abnormality is seen. KIDNEYS: Central calcifications in both kidneys are presumed vascular. No hydronephrosis seen bilater ally. BOWEL: Fluid in the cecum is present. There are oval densities presumed nondigested pills. Additional fluid scattered throughout portions of colon. Overall no abnormal small or large bowel dilatation. N o free air or mesenteric air. GENITAL ORGANS: No gross abnormality seen. LYMPH NODES: No greater than 1cm abdominal or pelvic lymph nodes are appreciated. OSSEOUS STRUCTURES: Grade 1 retrolisthesis L2 on L3. Moderate disc space narrowing at this level. OTHER: Mild/moderate calcified plaque of the aorta extends into branch vessels. IMPRESSION: Fluid throughout the colon is abnormal finding. Findings consistent with mild uncomplicat ed colitis and/or diarrhea.
[2023-12-01] MEDS: HYDROCORTISONE SUCCINATE 100 MG/2 ML VIAL IV STA (16:31)
[2023-12-01 17:55] LABS: Appearance,Urine Cloudy (Clear); Bilirubin,Urine Negative (Negative); Blood,Urine Negative (Negative); Color,Urine Yellow; Glucose,Urine (UA) Negative (Negative); Hyaline Casts,Urine 94 /lpf (0-2); Ketones,Urine Negative (Negative); Leukocyte Esterase,Urine Negative (Negative); Mucus,Urine Few /hpf; Nitrite,Urine Negative (Negative); Protein,Urine 1+ (Negative); RBC,Urine 1 /hpf (0-5); Specific Gravity,Urine 1.018 (1.001-1.035); Urobilinogen,Urine <2.0 mg/dL (<2.0); WBC,Urine 2 /hpf (0-5)
[2023-12-01] MEDS: DEXTROSE/WATER 1 250ML.BAG with DOPamine DRIP 800 MG IV SCH (17:56)
--- NOTE | 2023-12-01 18:16 | XR ---
EXAMINATION TYPE: XR chest 2V DATE OF EXAM: 12/01/2023 COMPARISON: Chest CT April 26, 2023 HISTORY: Difficulty breathing. TECHNIQUE: Frontal and lateral views of the chest are obtained. FINDINGS: Stable right internal jugular Mediport catheter. Background moderate underlying emphysemat ous change redemonstrated. Mild parenchymal scarring in the right lung base remains present. There is no suspicious new focal air space opacity, pleural effusion, or pneumothorax seen. The cardiac silh ouette size is stable and within normal limits. The osseous structures are intact. IMPRESSION: Chronic emphysematous change without acute pulmonary process.
[2023-12-01] MEDS: SODIUM CHLORIDE 0.9% 1,000 ML IV ONE (18:19)
[2023-12-01] MEDS: SODIUM CHLORIDE 0.9% 1,000 ML BAG IV STA (18:40)
[2023-12-01] MEDS ORDERED: NALOXONE 0.4 MG/ML 1 ML VIAL IV PRN (19:56)
[2023-12-01] MEDS: SODIUM CHLORIDE 0.9% 1,000 ML IV SCH (20:42)
--- NOTE | 2023-12-02 03:52 | P.CNPUL ---
History of Present Illness Consult date: 12/02/23 Requesting physician: Jerrod Mulligan Reason for consult: other (ICU evaluation) Chief complaint: Frequent diarrhea and abnormal labs at [employer] office History of present illness: Patient is a 63-year-old white male with past medical history significant for lung cancer with previous lobectomy, prostate cancer with previous radiation, hypertension, seizure disorder, and is a previous tobacco smoker. His PCP is Dr. Jose Guadalupe Paulino. Of note, back in 2021, Dr. Marroquin had previously performed a navigational bronchoscopy with EBUS, due to a concerning right upper lobe mass and associated right hilar lymphadenopathy, biopsies were positive for invasive pulmonary adenocarcinoma. Patient ended up undergoing a right upper lobectomy at outside facility. Last dose of immunotherapy reportedly May,. Not undergoing any systemic treatment at the moment. Most recent PET scan performed 09/30/2023 did not show any suspicious changes or recurrent or metastatic lung cancer. He routinely follows with his oncologist Dr. Montenegro. Patient was seen by a GI specialist yesterday afternoon, and was referred to the emergency department for evaluation. He is found to have sustained an acute kidney injury. He has been having frequent bouts of diarrhea a couple times per hour throughout the day, every day, for almost 6 weeks. Diarrhea is described as liquid. No associated nausea or vomiting. No blood mixed in with stool, small amount on toilet paper when wiping. No fevers. Abdomen is soft and does not appear acute. No significant abdominal discomfort. Denies any recent antibiotics. No one else has been similarly sick. Patient denies chronic GI disease, mesalamine is listed as home medication. No pulmonary complaints. He has been eating and drinking, but not likely enough to replace substantial fluid losses. He was noted to be hypotensive and aggressively fluid resuscitated with a total of 5 L normal saline bolus. Blood pressure has since improved. He was started on low dose dopamine by the ER physician, currently on 2.5 mcg/kg/min. Also, on normal saline at 130 MLS per hour. He has voided 4 or 5 times since arrival to the emergency room. BMP includes a sodium 135, potassium 4.2, chloride 107, serum bicarb 14, BUN 73, creatinine 5.21, glucose 108. Urinalysis unremarkable except for some proteinuria and casts. CBC unremarkable. No leukocytosis. Lactic acid level 1. No fevers. CT of the abdomen and pelvis without contrast showed fluid throughout the colon consistent with mild uncomplicated colitis and/or diarrhea. Awaiting for stool samples to be collected. He is currently lying in bed, alert and in no acute distress. Hemodynamics are normalizing. Review of Systems REVIEW OF SYSTEMS: CONSTITUTIONAL: Denies any recent significant weight loss or weight gain. EYES: Denies change in vision. EARS, NOSE, MOUTH, THROAT: Denies headaches, denies sore throat. CARDIOVASCULAR: Denies chest pain, palpitations or syncopal episodes. RESPIRATORY: Denies shortness of breath, cough, congestion or hemoptysis. GASTROINTESTINAL: See HPI. GENITOURINARY: Denies hematuria, denies infections. MUSKULOSKELETAL: Denies pain, denies swelling. INTEGUMENTARY: Denies rash, denies eczema. NEUROLOGICAL: Denies recent memory loss, no recent seizure activity. PSYCHIATRIC: Denies anxiety, denies depression. HEMATOLOGIC/LYMPHATIC: Denies anemia, denies enlarged lymph node Past Medical History Past Medical History: Cancer, Hypertension, Seizure Disorder Additional Past Medical History / Comment(s): LAST SEIZURE MAR 2019 APPROX , PAST HISTORY OF MIGRAINE, PROSTATE CANCER , ABNORMAL CT SCAN OF LUNG, History of Any Multi-Drug Resistant Organisms: None Reported Past Surgical History: Tonsillectomy Additional Past Surgical History / Comment(s): COLONOSCOPY, top 1/3 of lung removed october 2021 rt Past Anesthesia/Blood Transfusion Reactions: No Reported Reaction Past Psychological History: No Psychological Hx Reported Smoking Status: Former smoker Past Alcohol Use History: None Reported Past Drug Use History: None Reported - Past Family History Father Family Medical History: Cancer Additional Family Medical History / Comment(s): LUNG CANCER Medications and Allergies Home Medications Medication Instructions Recorded Confirmed Type Donepezil [Aricept] 20 mg PO HS 09/23/21 12/01/23 History levETIRAcetam [Keppra] 500 mg PO Q12HR 30 Days #60 tab 11/02/21 12/01/23 Rx Folic Acid 1 mg PO DAILY 06/04/22 12/01/23 History Mesalamine 2.4 gm PO HS 12/01/23 12/01/23 History Mesalamine [Canasa] 1,000 mg RECTAL DIRECTED 12/01/23 12/01/23 History amLODIPine BESYLATE/BENAZEPRIL 1 cap PO DAILY 12/01/23 12/01/23 History [amLODIPine BESYLATE/BENAZEPRIL 10-40 mg] Allergies Allergy/AdvReac Type Severity Reaction Status Date / Time No Known Allergies Allergy Verified 12/01/23 14:39 Physical Exam Vitals: Vital Signs Temp Pulse Resp BP Pulse Ox 12/02/23 03:00 53 L 16 110/74 97 12/02/23 01:00 52 L 16 89/51 98 12/02/23 00:39 62 16 82/49 97 12/01/23 23:31 60 16 86/58 98 12/01/23 22:20 71 16 94/44 98 12/01/23 21:38 60 18 87/54 95 12/01/23 20:00 70 16 94/66 95 12/01/23 19:27 74 16 79/50 95 12/01/23 18:49 70 18 117/55 94 L 12/01/23 18:19 63 16 83/41 94 L 12/01/23 17:56 68 16 74/45 93 L 12/01/23 16:34 66 16 73/50 93 L 12/01/23 15:29 67 16 85/41 95 12/01/23 14:50 63 16 65/42 95 12/01/23 14:12 79 16 67/41 95 12/01/23 13:32 97.4 F L 100 18 52/40 97 Intake and Output 12/01/23 12/01/23 12/02/23 14:59 22:59 06:59 Other: Weight 62.596 kg GENERAL EXAM: Alert, well-nourished, 63-year-old white male, comfortable in no apparent distress. HEAD: Normocephalic and atraumatic EYES: Normal reaction of pupils, equal size. NOSE: Clear with pink turbinates. THROAT: No erythema or exudates. Dry mucous membranes. NECK: No masses, no JVD. CHEST: No chest wall deformity. LUNGS: Equal air entry with no crackles, wheeze, rhonchi or dullness. On room air. No conversational dyspnea or accessory muscle use.. CVS: S1 and S2 normal with no audible murmur, regular rhythm. No extra heart sounds ABDOMEN: No hepatosplenomegaly, active bowel sounds, no guarding or rigidity. SPINE: No scoliosis or deformity SKIN: No rashes CENTRAL NERVOUS SYSTEM: No focal deficits, tone is normal in all 4 extremities. EXTREMITIES: There is no peripheral edema, clubbing, or cyanosis. Peripheral pulses are intact. Results - Laboratory Findings CBC and BMP: 12/01/23 14:10 12/02/23 07:25 PT/INR, D-dimer PT 10.5 sec (10.0-12.5) 12/01/23 14:10 INR 1.0 (<1.2) 12/01/23 14:10 Abnormal lab findings: Abnormal Labs 12/01/23 12/01/23 12/01/23 14:10 14:10 14:10 Lymphocytes # 0.8 L APTT 40.2 H Sodium 135 L Carbon Dioxide 14 L BUN 73 H Creatinine 5.21 H Glucose 108 H AST 13 L Urine Protein Hyaline Casts Urine Mucus 12/01/23 17:49 Lymphocytes # APTT Sodium Carbon Dioxide BUN Creatinine Glucose AST Urine Protein 1+ H Hyaline Casts 94 H Urine Mucus Few H - Diagnostic Findings Chest x-ray: image reviewed Assessment and Plan Assessment: Severe diarrhea with possible colitis, CT of the abdomen and pelvis without contrast showed fluid throughout the colon consistent with mild uncomplicated colitis and/or diarrhea. rule out C. difficile colitis Hypotension and severe dehydration, secondary to above, improving after aggressive fluid resuscitation Acute kidney injury, secondary to above and ATN Acute anion gap metabolic acidosis, secondary to above History of pulmonary adenocarcinoma, with reported history of right upper lobectomy and completed systemic treatment. Last dose of immunotherapy reportedly May,. Most recent PET scan performed 09/30/2023 did not show any suspicious changes or recurrent or metastatic lung cancer. He routin amber follows with his oncologist Dr. Montenegro. History of prostate cancer, status/post radiation History of hypertension History of seizure disorder, with no reported recent seizure activity Former tobacco smoker Plan: Patient has been aggressively fluid resuscitated with a total of 5 L normal s corazon bolus. Blood pressure has since normalized. Continue maintenance IV hydration Obtain stool culture and rule out C. difficile colitis Monitor renal function, and hold nephrotoxic agents. Nonoliguric. Currently on a low-dose dopamine infusion, which was started in the emergency room My supervising physician, Dr. Marroquin, has been updated and agrees with above- mentioned plan. At this time, patient can be safely monitored on the cardiac floor with telemetry monitoring. I have personally seen and examined the patient, performed the documentation and the assessment and plan as written. Number of minutes spent on the visit:20 12/02/2023, the patient was seen in joint evaluation along with the nurse practitioner. The patient is known to have non-small cell lung cancer, as the patient was found to have a right upper lobe mass consistent with adenocarcinoma. The patient underwent a biopsy that confirmed the diagnosis. No mediastinal lymphadenopathy. No actionable mutation. The patient underwent a right upper lobectomy and this was followed up by adjuvant chemotherapy using a combination of cisplatin and Alimta a total of 4 cycles and following that, the patient was given immunotherapy with Tecentriq regarding his non-small cell lung cancer. He completed his immunotherapy and the most recent PET/CT that was done few months back was showing no evidence of any active disease. The patient has been having diarrhea for several weeks and the patient has undergone a colonoscopy in outside facility that showed inflammatory changes involving the colon and the biopsies were done. Consider immunotherapy related colitis versus C. difficile colitis. The patient was hospitalized for severe dehydration and acute kidney injury. The patient was given a total of 5 L of IV fluids. Creatinine dropped from 5.2 down to 1.4. Initially, was hypotensive and required also low-dose dopamine and currently is off dopamine. He did also encounter non-anion gap metabolic acidosis and the patient will be started on a bicarb drip and stool for C. difficile pending for now. If C. difficile is negative, this may be potentially inflammatory/immunotherapy related colitis and the patient would benefit from steroids. The patient is currently afebrile and hemodynamically stable. On a separate note, the patient also has history of prostate cancer that was treated by radiation therapy. Awake and alert, does not look toxic. Oxygenation is stable and the patient is currently on room air oxygen with a pulse ox of 98%. This evaluation was done more than 30 minutes. Case was also discussed with his oncologist, Dr. Montenegro Time with Patient: Greater than 30
[2023-12-02 09:07] LABS: African American GFR (CKD) 61 (>60 ml/min/1.73 sqM); Anion Gap 5 mmol/L; Blood Urea Nitrogen 45 mg/dL (9-20); Calcium 8.1 mg/dL (8.4-10.2); Carbon Dioxide 13 mmol/L (22-30); Chloride 123 mmol/L (98-107); Glucose 89 mg/dL (74-99); Non-African American GFR(CKD) 53 (>60 ml/min/1.73 sqM); Sodium 141 mmol/L (137-145)
[2023-12-02] MEDS: DEXTROSE 5% IN WATER 1,000 ML with SODIUM BICARB (1 MEQ/ML) 150 ML IV SCH (11:06)
[2023-12-02] MEDS ORDERED: LACTATED RINGERS 1,000 ML IV SCH (11:45)
[2023-12-02] MEDS ORDERED: SODIUM CHLORIDE 0.45% 1,000 ML IV SCH (11:45)
[2023-12-02] MEDS: levETIRAcetam 500 MG TAB PO SCH (12:35)
--- NOTE | 2023-12-02 12:48 | P.HPIM ---
History of Present Illness Patient is a pleasant 63-year-old male was sent in from a outpatient physician office because of a elevated creatinine of 5.1 baseline is within normal limits. Patient creatinine improved to 1.41 with a dobutamine drip that was ordered by ER doctor and IV fluids. Patient has diarrhea which has been going on for 2 months. Patient does have history of ulcerative colitis as per the patient and he states he has proctitis. Patient had a CT of the abdomen showed mild diffuse colitis. C. difficile was ordered patient only had 2 episodes of diarrhea today and he states it is improving at this time. Patient also on losartan and hy drochlorothiazide which is being held at this time patient was hypotensive yesterday. Patient history of lung cancer with apical lung resection. Not receiving any chemotherapy. REVIEW OF SYSTEMS: CONSTITUTIONAL: No fever, no malaise, no fatigue. HEENT: No recent visual problems or hearing problems. Denied any sore throat. CARDIOVASCULAR: No chest pain, orthopnea, PND, no palpitations, no syncope. PULMONARY: No shortness of breath, no cough, no hemoptysis. GASTROINTESTINAL: As mentioned in HPI NEUROLOGICAL: No headaches, no weakness, no numbness. HEMATOLOGICAL: Denies any bleeding or petechiae. GENITOURINARY: Denies any burning micturition, frequency, or urgency. MUSCULOSKELETAL/RHEUMATOLOGICAL: Denies any joint pain, swelling, or any muscle pain. ENDOCRINE: Denies any polyuria or polydipsia. The rest of the 14-point review of systems is negative. PHYSICAL EXAMINATION: GENERAL: The patient is alert and oriented x3, not in any acute distress. Well developed, well nourished. HEENT: Pupils are round and equally reacting to light. EOMI. No scleral icterus. No conjunctival pallor. Normocephalic, atraumatic. No pharyngeal erythema. No thyromegaly. CARDIOVASCULAR: S1 and S2 present. No murmurs, rubs, or gallops. PULMONARY: Chest is clear to auscultation, no wheezing or crackles. ABDOMEN: Soft, nontender, nondistended, normoactive bowel sounds. No palpable organomegaly. MUSCULOSKELETAL: No joint swelling or deformity. EXTREMITIES: No cyanosis, clubbing, or pedal edema. NEUROLOGICAL: Gross neurological examination did not reveal any focal deficits. SKIN: No rashes. Assessment and plan --Acute renal failure: Secondary to prerenal azotemia, secondary to diarrhea and severe dehydration may be a competent of acute tubular necrosis from hypotension. Patient improved with the dobutamine and IV fluids. W will be discontinued patient will be transition to D5 water with bicarbonate due to hyperchloremic metabolic acidosis. -Diarrhea: Secondary to possible ulcerative colitis exacerbation since patient diarrhea is improving I will just continue his oral balsalazide and mesalamine and if his diarrhea is worse patient will be started on IV steroids instead of oral balsalazide. Obtaining C. difficile testing -Hypotension secondary to hypovolemia which improved at this time Hold off on losartan and hydrochlorothiazide -History of hypertension: Management as mentioned above -Anion gap metabolic acidosis secondary to possible lactic acidosis on admission due to secondary to severe dehydration -Non-anion gap metabolic acidosis secondary to hyperchloremia from IV fluids bicarbonate drip as mentioned above -Lung cancer in remission -Seizure disorder DVT prophylaxis: Subcutaneous heparin next Past Medical History Past Medical History: Cancer, Hypertension, Seizure Disorder Additional Past Medical History / Comment(s): LAST SEIZURE MAR 2019 APPROX , PAST HISTORY OF MIGRAINE, PROSTATE CANCER , ABNORMAL CT SCAN OF LUNG, History of Any Multi-Drug Resistant Organisms: None Reported Past Surgical History: Tonsillectomy Additional Past Surgical History / Comment(s): COLONOSCOPY, top 1/3 of lung removed october 2021 rt Past Anesthesia/Blood Transfusion Reactions: No Reported Reaction Past Psychological History: No Psychological Hx Reported Smoking Status: Former smoker Past Alcohol Use History: None Reported Past Drug Use History: None Reported - Past Family History Father Family Medical History: Cancer Additional Family Medical History / Comment(s): LUNG CANCER Medications and Allergies Home Medications Medication Instructions Recorded Confirmed Type Donepezil [Aricept] 20 mg PO HS 09/23/21 12/01/23 History levETIRAcetam [Keppra] 500 mg PO Q12HR 30 Days #60 tab 11/02/21 12/01/23 Rx Folic Acid 1 mg PO DAILY 06/04/22 12/01/23 History Mesalamine 2.4 gm PO HS 12/01/23 12/01/23 History Mesalamine [Canasa] 1,000 mg RECTAL DIRECTED 12/01/23 12/01/23 History amLODIPine BESYLATE/BENAZEPRIL 1 cap PO DAILY 12/01/23 12/01/23 History [amLODIPine BESYLATE/BENAZEPRIL 10-40 mg] Allergies Allergy/AdvReac Type Severity Reaction Status Date / Time No Known Allergies Allergy Verified 12/01/23 14:39 Physical Exam Vitals: Vital Signs Temp Pulse Resp BP Pulse Ox 12/02/23 12:00 60 20 92/60 95 12/02/23 11:00 57 L 20 116/60 97 12/02/23 10:00 86 16 113/60 98 12/02/23 07:43 55 L 20 100/52 97 12/02/23 05:55 51 L 16 93/83 96 12/02/23 03:00 53 L 16 110/74 97 12/02/23 01:00 52 L 16 89/51 98 12/02/23 00:39 62 16 82/49 97 12/01/23 23:31 60 16 86/58 98 12/01/23 22:20 71 16 94/44 98 12/01/23 21:38 60 18 87/54 95 12/01/23 20:00 70 16 94/66 95 12/01/23 19:27 74 16 79/50 95 12/01/23 18:49 70 18 117/55 94 L 12/01/23 18:19 63 16 83/41 94 L 12/01/23 17:56 68 16 74/45 93 L 12/01/23 16:34 66 16 73/50 93 L 12/01/23 15:29 67 16 85/41 95 12/01/23 14:50 63 16 65/42 95 12/01/23 14:12 79 16 67/41 95 12/01/23 13:32 97.4 F L 100 18 52/40 97 Results CBC & Chem 7: 12/01/23 14:10 12/02/23 07:25 Labs: Abnormal Lab Results - Last 24 Hours (Table) 12/01/23 12/01/23 12/01/23 Range/Units 14:10 14:10 14:10 Lymphocytes # 0.8 L (1.0-4.8) k/uL APTT 40.2 H (22.0-30.0) sec Sodium 135 L (137-145) mmol/L Chloride (98-107) mmol/L Carbon Dioxide 14 L (22-30) mmol/L BUN 73 H (9-20) mg/dL Creatinine 5.21 H (0.66-1.25) mg/dL Glucose 108 H (74-99) mg/dL Calcium (8.4-10.2) mg/dL AST 13 L (17-59) U/L Urine Protein (Negative) Hyaline Casts (0-2) /lpf Urine Mucus (None) /hpf 12/01/23 12/02/23 Range/Units 17:49 07:25 Lymphocytes # (1.0-4.8) k/uL APTT (22.0-30.0) sec Sodium (137-145) mmol/L Chloride 123 H (98-107) mmol/L Carbon Dioxide 13 L (22-30) mmol/L BUN 45 H (9-20) mg/dL Creatinine 1.41 H (0.66-1.25) mg/dL Glucose (74-99) mg/dL Calcium 8.1 L (8.4-10.2) mg/dL AST (17-59) U/L Urine Protein 1+ H (Negative) Hyaline Casts 94 H (0-2) /lpf Urine Mucus Few H (None) /hpf
--- NOTE | 2023-12-02 14:23 | P.NPCON ---
History of Present Illness - Reason for Consult acute renal failure - History of Present Illness patient is a 63-year-old male who was sent to the hospital due to elevated creatinine. No history of kidney disease. Serum creatinine was 5.1 on admission. Patient is maintained on aggressive IV hydration and repeat creatinine was down to 1.4. Patient has had significant diarrhea for about 2-3 weeks. He reports poor oral intake. He does have a history of ulcerative colitis. BP was also low with systolic in the 60s. home medications included ETHEL inhibitor's prior to admission. These are currently on hold. Review of Systems as per HPI Past Medical History Past Medical History: Cancer, Hypertension, Seizure Disorder Additional Past Medical History / Comment(s): LAST SEIZURE MAR 2019 APPROX , PAST HISTORY OF MIGRAINE, PROSTATE CANCER , ABNORMAL CT SCAN OF LUNG, History of Any Multi-Drug Resistant Organisms: None Reported Past Surgical History: Tonsillectomy Additional Past Surgical History / Comment(s): COLONOSCOPY, top 1/3 of lung removed october 2021 rt Past Anesthesia/Blood Transfusion Reactions: No Reported Reaction Past Psychological History: No Psychological Hx Reported Smoking Status: Former smoker Past Alcohol Use History: None Reported Past Drug Use History: None Reported - Past Family History Father Family Medical History: Cancer Additional Family Medical History / Comment(s): LUNG CANCER Medications and Allergies Home Medications Medication Instructions Recorded Confirmed Type Donepezil [Aricept] 20 mg PO HS 09/23/21 12/01/23 History levETIRAcetam [Keppra] 500 mg PO Q12HR 30 Days #60 tab 11/02/21 12/01/23 Rx Folic Acid 1 mg PO DAILY 06/04/22 12/01/23 History Mesalamine 2.4 gm PO HS 12/01/23 12/01/23 History Mesalamine [Canasa] 1,000 mg RECTAL DIRECTED 12/01/23 12/01/23 History amLODIPine BESYLATE/BENAZEPRIL 1 cap PO DAILY 12/01/23 12/01/23 History [amLODIPine BESYLATE/BENAZEPRIL 10-40 mg] Allergies Allergy/AdvReac Type Severity Reaction Status Date / Time No Known Allergies Allergy Verified 12/01/23 14:39 Physical Exam Vitals: Vital Signs Pulse Resp BP Pulse Ox 12/02/23 12:00 60 20 92/60 95 12/02/23 11:00 57 L 20 116/60 97 12/02/23 10:00 86 16 113/60 98 12/02/23 07:43 55 L 20 100/52 97 12/02/23 05:55 51 L 16 93/83 96 12/02/23 03:00 53 L 16 110/74 97 12/02/23 01:00 52 L 16 89/51 98 12/02/23 00:39 62 16 82/49 97 12/01/23 23:31 60 16 86/58 98 12/01/23 22:20 71 16 94/44 98 12/01/23 21:38 60 18 87/54 95 12/01/23 20:00 70 16 94/66 95 12/01/23 19:27 74 16 79/50 95 12/01/23 18:49 70 18 117/55 94 L 12/01/23 18:19 63 16 83/41 94 L 12/01/23 17:56 68 16 74/45 93 L 12/01/23 16:34 66 16 73/50 93 L 12/01/23 15:29 67 16 85/41 95 12/01/23 14:50 63 16 65/42 95 patient is awake, comfortable, no acute distress. 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 Acute kidney injury, ATN, nonoliguric secondary to severe hypotension and hypovolemia. Improving. ETHEL inhibitor's on hold. UA is benign with trace protein. CT of the abdomen does not show any obstructive uropathy. 2. Metabolic acidosis secondary to acute kidney injury and GI losses from diarrhea. 3. Volume depletion 4. History of ulcerative colitis 5. History of hypertension with blood pressure currently low and antihypertensive medications on hold. 6. History of lung cancer status post resection 7. History of seizures Plan: continue with IV bicarb. Repeat labs in a.m. Can discontinue dopamine if blood pressure is stable. Continue to hold ETHEL inhibitors. Thank you for the consultation. We will continue to follow the patient with you during his hospitalization.
--- NOTE | 2023-12-02 15:19 | P.CONS ---
History of Present Illness - Reason for Consult Consult date: 12/02/23 immunotherapy in the last 6 months, Hx of lung and prostate malignancyHeane Requesting physician: Freda Bang - Chief Complaint Diarrhea, abd pain - History of Present Illness Mr. Ruano is a male pt of Dr. Montenegro who is seen for Hx of 2 malignancies. He was initially diagnosed with stage SOLOMON [id number], PSA 28, G4, prostate cancer in July 2021, plan was for LHRH agnosit treatment and definitive radiation therapy. As part of metastatic work up for prostate cancer, he had CT CAP 09/05/2021 which revealed about 3 cm spiculated mass like consolidation in RUL and 1.7 cm right hilar node. He was evaluated by Dr. Marroquin 09/25/2021, he underwent EBUS, transbronchial biopsy of RUL mass was positive for adenocarcinoma, IHC consistent with lung primary, FNA of 10R node was not diagnostic. 10/08/2021 brain MRI was negative for metastatic disease. 10/10/2021 PET revealed suspicious uptake in RUL mass, no uptake in hilar or mediastinal nodes. 11/11/2021 he underwent RUL lobectomy, pathology revealed 7.5 cm, G3 adenocarcinoma, negative margins, negative regional nodes, no LVI. PDL-1 positive (2-3%), NGS revealed no actionable mutation, high TMB. 12/16/2021 he started adjuvant cisplatin/alimta and completed 4 cycles on 02/17/2022. He was also on LHRH agonist for his prostate cancer with Dr. Sandoval, and he started radiation therapy for prostate cancer on 03/25/2022, completed treatment early April/2022. 07/02/2022 he started tecentriq adjuvant for lung adenocarcinoma. 09/21/2022,CT chest revealed no evidence of recurrence, small less than 5 mm nodules, possibly inflammatory. Repeat CT chest 01/05/2023 revealed stable one small left lung nodule, ? 0.6 cm new left nodule. 04/26/2023 PET scan revealed no evidence of disease. Completed one year of tecentriq on 06/01/2023. 09/30/2023 repeat PET scan showed no evidence of disease. Pt was seen for routine f/u 10/17 when he reported rectal discomfort, did not have diarrhea or abd pain at that time. He was seen by Dr. Armenta and had screening colonoscopy 10/28/2023. Mildly erythematous mucosa found in the entire colon, biopsies were done. Scarred mucosa was found in the rectum. Patient followed up November 30, biopsy showed cryptitis, ischemic changes and fibrosis throughout the entire colon. Patient had new symptoms of abdominal pain and diarrhea so he was instructed to come to the emergency department for C. difficile testing, assessment to ensure no acute abdomen and for hydration as the patient's renal function was significantly changed from his normal baseline. Vital signs on admission normal other than a slightly soft blood pressure CBC normal BUN 73 creatinine 5.21, patient's creatinine is typically within normal limits. Today when seen patient states he is feeling much better, diarrhea is persistent, watery, no blood or abdominal pain at this time, abdominal exam is rather benign. Creatinine improved to 1.41. No fevers, N,V, cough, SOB, hematuria, dysuria, swelling in the legs. Review of Systems 10 point ROS is neg except as stated in HPI Past Medical History Past Medical History: Cancer, Hypertension, Seizure Disorder Additional Past Medical History / Comment(s): LAST SEIZURE MAR 2019 APPROX , PAST HISTORY OF MIGRAINE, PROSTATE CANCER , ABNORMAL CT SCAN OF LUNG, History of Any Multi-Drug Resistant Organisms: None Reported Past Surgical History: Tonsillectomy Additional Past Surgical History / Comment(s): COLONOSCOPY, top 1/3 of lung removed october 2021 rt Past Anesthesia/Blood Transfusion Reactions: No Reported Reaction Past Psychological History: No Psychological Hx Reported Smoking Status: Former smoker Past Alcohol Use History: None Reported Past Drug Use History: None Reported - Past Family History Father Family Medical History: Cancer Additional Family Medical History / Comment(s): LUNG CANCER Medications and Allergies Home Medications Medication Instructions Recorded Confirmed Type Donepezil [Aricept] 20 mg PO HS 09/23/21 12/01/23 History levETIRAcetam [Keppra] 500 mg PO Q12HR 30 Days #60 tab 11/02/21 12/01/23 Rx Folic Acid 1 mg PO DAILY 06/04/22 12/01/23 History Mesalamine 2.4 gm PO HS 12/01/23 12/01/23 History Mesalamine [Canasa] 1,000 mg RECTAL DIRECTED 12/01/23 12/01/23 History amLODIPine BESYLATE/BENAZEPRIL 1 cap PO DAILY 12/01/23 12/01/23 History [amLODIPine BESYLATE/BENAZEPRIL 10-40 mg] Allergies Allergy/AdvReac Type Severity Reaction Status Date / Time No Known Allergies Allergy Verified 12/01/23 14:39 Physical Exam Vitals: Vital Signs Pulse Resp BP Pulse Ox 12/02/23 12:00 60 20 92/60 95 12/02/23 11:00 57 L 20 116/60 97 12/02/23 10:00 86 16 113/60 98 12/02/23 07:43 55 L 20 100/52 97 12/02/23 05:55 51 L 16 93/83 96 12/02/23 03:00 53 L 16 110/74 97 12/02/23 01:00 52 L 16 89/51 98 12/02/23 00:39 62 16 82/49 97 12/01/23 23:31 60 16 86/58 98 12/01/23 22:20 71 16 94/44 98 12/01/23 21:38 60 18 87/54 95 12/01/23 20:00 70 16 94/66 95 12/01/23 19:27 74 16 79/50 95 12/01/23 18:49 70 18 117/55 94 L 12/01/23 18:19 63 16 83/41 94 L 12/01/23 17:56 68 16 74/45 93 L 12/01/23 16:34 66 16 73/50 93 L 12/01/23 15:29 67 16 85/41 95 12/01/23 14:50 63 16 65/42 95 - Constitutional General appearance: average body habitus, cooperative, no acute distress - EENT Eyes: anicteric sclerae, EOMI ENT: hearing grossly normal, normal oropharynx - Neck Neck: no lymphadenopathy - Respiratory Respiratory: bilateral: CTA - Cardiovascular Rhythm: regular Heart sounds: normal: S1, S2 Abnormal Heart Sounds: no systolic murmur, no diastolic murmur, no rub, no S3 Gallop, no S4 Gallop, no click, no other leg Peripheral Edema: bilateral: None - Gastrointestinal General gastrointestinal: no absent bowel sounds, no decreased bowel sounds, no distended, no hepatomegaly, no hyperactive bowel sounds, normal bowel sounds, no organomegaly, no rigid, no scaphoid, soft, no splenomegaly, no tenderness, no umbilical hernia, no ventral hernia - Integumentary Integumentary: normal - Neurologic Neurologic: CNII-XII intact - Musculoskeletal Musculoskeletal: strength equal bilaterally - Psychiatric Psychiatric: A&O x's 3, appropriate affect, intact judgment & insight Results CBC & Chem 7: 12/01/23 14:10 12/02/23 07:25 Labs: Abnormal Lab Results - Last 24 Hours (Table) 12/01/23 12/01/23 12/01/23 Range/Units 14:10 14:10 17:49 APTT 40.2 H (22.0-30.0) sec Sodium 135 L (137-145) mmol/L Chloride (98-107) mmol/L Carbon Dioxide 14 L (22-30) mmol/L BUN 73 H (9-20) mg/dL Creatinine 5.21 H (0.66-1.25) mg/dL Glucose 108 H (74-99) mg/dL Calcium (8.4-10.2) mg/dL AST 13 L (17-59) U/L Urine Protein 1+ H (Negative) Hyaline Casts 94 H (0-2) /lpf Urine Mucus Few H (None) /hpf 12/02/23 Range/Units 07:25 APTT (22.0-30.0) sec Sodium (137-145) mmol/L Chloride 123 H (98-107) mmol/L Carbon Dioxide 13 L (22-30) mmol/L BUN 45 H (9-20) mg/dL Creatinine 1.41 H (0.66-1.25) mg/dL Glucose (74-99) mg/dL Calcium 8.1 L (8.4-10.2) mg/dL AST (17-59) U/L Urine Protein (Negative) Hyaline Casts (0-2) /lpf Urine Mucus (None) /hpf Chest x-ray: report reviewed CT scan - abdomen: report reviewed CT scan - pelvis: report reviewed Assessment and Plan (1) Dehydration Current Visit: Yes Status: Acute Priority: High Code(s): E86.0 - DEHYDRATION SNOMED Code(s): 44434162 (2) Acute diarrhea Current Visit: Yes Status: Acute Priority: High Code(s): R19.7 - DIARRHEA, UNSPECIFIED SNOMED Code(s): 131093503 (3) Adenocarcinoma, lung Current Visit: No Status: Chronic Priority: Low Code(s): C34.90 - MALIGNANT NEOPLASM OF UNSP PART OF UNSP BRONCHUS OR LUNG SNOMED Code(s): 225842058 (4) Primary prostate adenocarcinoma Current Visit: No Status: Chronic Priority: Low Code(s): C61 - MALIGNANT NEOPLASM OF PROSTATE SNOMED Code(s): 2941107618 Plan: Dehydration -Secondary to diarrhea -Creatinine 5.21 on admit, 1.41 today. -Nephrology has seen the patient Acute renal failure -Secondary to above -Nephrology has seen pt -Patient's renal function much improved with hydration Diarrhea -Recent colonoscopy 10/28/[address] Sahra Padilla. Erythematous mucosa found in the entire colon, diffuse area of moderately altered vascular, arithmetic's and scarred mucosa was found in the rectum. Biopsies were positive for cryptitis, ischemic changes and fibrosis throughout the entire colon. When patient was being followed up by Dr. Armenta pt was c/o abdominal pain, persistent diarrhea, on exam there were concerns for dehydration so, pt was directed to the ER. -CT of the abdomen and pelvis reports fluid throughout the colon, findings consistent with a mild uncomplicated colitis and/or diarrhea -Agree with hydration, stool studies. -Recommend for today continuing clear liquids. Surgical consult-after physical exam do not suspect an acute abdomen but, see how patient does overnight. -Included in the differential is autoimmune disease in the bowel that has been brought out because of treatment with immunotherapy versus an ischemic bowel disease. Patient does need to be evaluated by a Health And Safety Coordinator. -Hold off on steroids from an Oncology standpoint to treat an immunotherapy side effect. Pending stool studies. Will see how pt does over the next 24 hours. History of lung and prostate adenocarcinoma. -Both diseases have been treated. -Most recent follow-up scans in September showed no evidence of disease -Patient will continue on follow-up as scheduled with Dr. Montenegro.
[2023-12-02] MEDS: HEPARIN SODIUM,PORCINE 5,000 UNIT/ML 1 ML VIAL SQ SCH (16:39)
--- NOTE | 2023-12-02 16:40 | CA ---
Transthoracic Echo Report Name: Juan Ruano Age: 63 Gender: M : 1960 Exam Date: 12/02/2023 14:38 Exam Location: [facility] Ht (in): 70 Wt (lb): 138 Ordering Physician: Hernandez Medina MD ([id number]) Attending/Referring Phys: Bag Bundler Kay Paredes RDCS Procedure CPT: Indications: cardiomyopathy, Cardiac Hx: Technical Quality: Fair Contrast 1: Total Dose (mL): Contrast 2: Total Dose (mL): MEASUREMENTS (Male / Female) Normal Values 2D ECHO LV Diastolic Diameter PLAX 4.0 cm 4.2 - 5.9 / 3.9 - 5.3 cm LV Systolic Diameter PLAX 3.0 cm IVS Diastolic Thickness 0.9 cm 0.6 - 1.0 / 0.6 - 0.9 cm LVPW Diastolic Thickness 0.8 cm 0.6 - 1.0 / 0.6 - 0.9 cm LV Relative Wall Thickness 0.4 Aortic Root Diameter 1.2 cm LA Systolic Diameter LX 3.7 cm 3.0 - 4.0 / 2.7 - 3.8 cm LV Diastolic Volume MOD BP 74.2 cm??? 67 - 155 / 56 - 104 cm??? LV Systolic Volume MOD BP 20.6 cm??? 22 - 58 / 19 - 49 cm??? LV Ejection Fraction MOD BP 72.2 % >= 55 % LV Cardiac Index MOD BP 1714.3 cm???/min???m??? LV Diastolic Volume MOD 4C 89.0 cm??? LV Systolic Volume MOD 4C 19.7 cm??? LV Ejection Fraction MOD 4C 77.9 % LV Cardiac Index MOD 4C 2217.7 cm???/min???m??? LV Diastolic Length 4C 7.0 cm LV Systolic Length 4C 5.4 cm LV Diastolic Volume MOD 2C 51.7 cm??? LV Systolic Volume MOD 2C 19.9 cm??? LV Ejection Fraction MOD 2C 61.5 % LV Cardiac Index MOD 2C 1018.6 cm???/min???m??? LV Diastolic Length 2C 5.8 cm LV Systolic Length 2C 4.8 cm LA Volume 43.0 cm??? 18 - 58 / 22 - 52 cm??? LA Volume Index 24.5 cm???/m??? 16 - 28 cm???/m??? M-MODE Aortic Root Diameter MM 3.3 cm DOPPLER AV Peak Velocity 106.2 cm/s AV Peak Gradient 4.5 mmHg Mitral E Point Velocity 86.0 cm/s Mitral A Point Velocity 64.2 cm/s Mitral E to A Ratio 1.3 MV Deceleration Time 197.8 ms FINDINGS Left Ventricle Left ventricular ejection fraction is estimated at 50-55 %. Left ventricular cavity size normal. Left ventricular wall thickness normal. Normal left ventricular wall motion. Right Ventricle Normal right ventricular size and function. Unable to estimate the right ventricular systolic pressure. Right Atrium Normal right atrial size. No right atrial thrombus or mass seen. Left Atrium Normal left atrial size. No left atrial thrombus or mass present. Mitral Valve Structurally normal mitral valve. No mitral stenosis, regurgitation or prolapse. Aortic Valve Trileaflet aortic valve. No aortic valve stenosis or regurgitation. Tricuspid Valve Structurally normal tricuspid valve. No tricuspid stenosis, regurgitation or prolapse. Pulmonic Valve Pulmonic valve not well visualized. Pericardium No pericardial or pleural effusion. Aorta Normal size aortic root and proximal ascending aorta. CONCLUSIONS Normal LV size and function Previewed by: Dr. Henri Koo MD (Electronically Signed) Final Date: 02 December 2023 16:39
[2023-12-02] MEDS: MESALAMINE 1,000 MG SUPP RECTAL SCH (22:39)
[2023-12-02] MEDS: BALSALAZIDE DISODIUM 750 MG CAPSULE PO SCH (22:44)
[2023-12-03] MEDS: FOLIC ACID 1 MG TAB PO SCH (09:06)
[2023-12-03 09:36] LABS: HCT 30.4 % (39.0-53.0); MCH 32.8 pg (25.0-35.0); MCHC 35.4 g/dL (31.0-37.0); MCV 92.7 fL (80.0-100.0); Mean Platelet Volume 8.7; Platelet Count 147 k/uL (150-450); RBC 3.28 m/uL (4.30-5.90); RDW 12.4 % (11.5-15.5); WBC 2.5 k/uL (3.8-10.6)
[2023-12-03 09:41] LABS: African American GFR (CKD) >90 (>60 ml/min/1.73 sqM); Anion Gap 2 mmol/L; Blood Urea Nitrogen 25 mg/dL (9-20); Carbon Dioxide 30 mmol/L (22-30); Chloride 109 mmol/L (98-107); Glucose 156 mg/dL (74-99); Magnesium 1.5 mg/dL (1.6-2.3); Non-African American GFR(CKD) >90 (>60 ml/min/1.73 sqM); Potassium 3.6 mmol/L (3.5-5.1); Sodium 141 mmol/L (137-145)
[2023-12-03 09:43] LABS: HGB 10.8 gm/dL (13.0-17.5)
[2023-12-03] MEDS ORDERED: Magnesium Replacement Protocol 1 EACH MISC MISCELLANE PRN (10:02)
[2023-12-03] MEDS: MAGNESIUM SULFATE-D5W PMX 1 GM in DEXTROSE/WATER 1 100ML.BAG IVPB SCH (11:08)
[2023-12-03] MEDS: POTASSIUM CHLORIDE ER 20 MEQ TAB.ER PO STA (11:12)
[2023-12-03] MEDS ORDERED: LOPERAMIDE 2 MG CAP PO PRN (14:03)
--- NOTE | 2023-12-03 16:15 | P.PN ---
Subjective Progress Note Date: 12/03/23 On today's evaluation of 12/03/2023, the patient is being seen for a follow-up. Noted the patient had developed significant diarrhea and the patient was started with IV fluids. Creatinine is down to 0.7 with a BUN of 25 and the patient has not required any pressors. Sodium levels at 141, WBC count is at 2.5 with a hemoglobin 10.8 and a platelet count of 147. The patient otherwise is hemodynamically stable. The patient is on room air oxygen. No nausea vomiting or abdominal pain. The patient is currently on mesalamine 1 g rectally every night. The patient remains on a bicarb infusion at rate of 100 cc an hour. The patient remains on heparin subcu for DVT prophylaxis. Serum bicarb is up to 30. Objective - Vital Signs Vital signs: Vital Signs Temp 97.9 F 12/03/23 15:01 Pulse 56 L 12/03/23 15:01 Resp 18 12/03/23 15:01 BP 131/62 12/03/23 15:01 Pulse Ox 96 12/03/23 15:01 FiO2 Intake & Output 12/02/23 12/03/23 12/03/23 18:59 06:59 18:59 Weight 62.596 kg - Exam GENERAL EXAM: Alert, well-nourished, 63-year-old white male, comfortable in no apparent distress. HEAD: Normocephalic and atraumatic EYES: Normal reaction of pupils, equal size. NOSE: Clear with pink turbinates. THROAT: No erythema or exudates. Dry mucous membranes. NECK: No masses, no JVD. CHEST: No chest wall deformity. LUNGS: Equal air entry with no crackles, wheeze, rhonchi or dullness. On room air. No conversational dyspnea or accessory muscle use.. CVS: S1 and S2 normal with no audible murmur, regular rhythm. No extra heart sounds ABDOMEN: No hepatosplenomegaly, active bowel sounds, no guarding or rigidity. SPINE: No scoliosis or deformity SKIN: No rashes CENTRAL NERVOUS SYSTEM: No focal deficits, tone is normal in all 4 extremities. EXTREMITIES: There is no peripheral edema, clubbing, or cyanosis. Peripheral pulses are intact. - Labs CBC & Chem 7: 12/03/23 08:50 12/03/23 08:50 Labs: Abnormal Lab Results - Last 24 Hours (Table) 12/03/23 12/03/23 Range/Units 08:50 08:50 WBC 2.5 L (3.8-10.6) k/uL RBC 3.28 L (4.30-5.90) m/uL Hgb 10.8 L D (13.0-17.5) gm/dL Hct 30.4 L (39.0-53.0) % Plt Count 147 L (150-450) k/uL Chloride 109 H (98-107) mmol/L BUN 25 H (9-20) mg/dL Glucose 156 H (74-99) mg/dL Calcium 8.0 L (8.4-10.2) mg/dL Magnesium 1.5 L (1.6-2.3) mg/dL Assessment and Plan Assessment: Severe diarrhea with possible colitis, CT of the abdomen and pelvis without contrast showed fluid throughout the colon consistent with mild uncomplicated colitis and/or diarrhea, stool for C. difficile has been negative. Clinically stable. Hemodynamically stable. Not in acute metabolic acidosis recovered and the patient remains on a bicarb infusion. Hypotension and severe dehydration, secondary to above, improving after aggressive fluid resuscitation, currently normotensive Acute kidney injury, secondary to above and ATN, improving Acute anion gap metabolic acidosis, secondary to above, improved History of pulmonary adenocarcinoma, with reported history of right upper lob ectomy and completed systemic treatment. Last dose of immunotherapy reportedly May,. Most recent PET scan performed 09/30/2023 did not show any suspicious changes or recurrent or metastatic lung cancer. He routinely follows with his oncologist Dr. Montenegro. History of prostate cancer, status/post radiation History of hypertension History of seizure disorder, with no reported recent seizure activity Former tobacco smoker Plan: Patient is currently on room air oxygen Adequate/stable IV fluids Discontinue bicarb infusion With the patient on normal saline at rate of 50 cc an hour Stool for C. difficile has been negative Consider mesalamine Consider steroids if no improvement in diarrhea. Will continue to follow. Currently on room air oxygen Lung cancer stable
[2023-12-03] MEDS: SODIUM CHLORIDE 0.9% 1,000 ML IV SCH (17:19)
--- NOTE | 2023-12-03 18:23 | P.PN ---
Subjective Progress Note Date: 12/03/23 At today's visit patient is reporting he is feeling much improved since admission. However has had increasing diarrhea today with 4 episodes this morning. C. difficile was negative. Denies n/v. Blood count stable, WBC 2.5, hemoglobin 10.8, platelets 147,000. Creatinine 0.75, GFR 90. Objective - Vital Signs Vital signs: Vital Signs Temp 97.4 F L 12/01/23 13:32 Pulse 81 12/03/23 13:00 Resp 18 12/03/23 13:00 BP 117/76 12/03/23 13:00 Pulse Ox 97 12/03/23 13:00 FiO2 - Constitutional General appearance: Present: average body habitus, no acute distress - EENT Eyes: Present: anicteric sclerae, EOMI ENT: Present: hearing grossly normal - Respiratory Details: breathing is even and unlabored - Cardiovascular Details: well perfused - Gastrointestinal General gastrointestinal: Present: soft. Absent: tenderness - Integumentary Integumentary: Absent: cyanotic, jaundiced - Musculoskeletal Musculoskeletal: Present: strength equal bilaterally - Psychiatric Psychiatric: Present: A&O x's 3 - Labs CBC & Chem 7: 12/03/23 08:50 12/03/23 08:50 Labs: Abnormal Lab Results - Last 24 Hours (Table) 12/03/23 12/03/23 Range/Units 08:50 08:50 WBC 2.5 L (3.8-10.6) k/uL RBC 3.28 L (4.30-5.90) m/uL Hgb 10.8 L D (13.0-17.5) gm/dL Hct 30.4 L (39.0-53.0) % Plt Count 147 L (150-450) k/uL Chloride 109 H (98-107) mmol/L BUN 25 H (9-20) mg/dL Glucose 156 H (74-99) mg/dL Calcium 8.0 L (8.4-10.2) mg/dL Magnesium 1.5 L (1.6-2.3) mg/dL Assessment and Plan (1) Acute diarrhea Current Visit: Yes Status: Acute Priority: High Code(s): R19.7 - DIARRHEA, UNSPECIFIED SNOMED Code(s): 326609545 (2) Dehydration Current Visit: Yes Status: Acute Priority: High Code(s): E86.0 - DEHYDRATION SNOMED Code(s): 19702827 (3) Adenocarcinoma, lung Current Visit: No Status: Chronic Priority: Low Code(s): C34.90 - MA LIGNANT NEOPLASM OF UNSP PART OF UNSP BRONCHUS OR LUNG SNOMED Code(s): 25 9456624 (4) Primary prostate adenocarcinoma Current Visit: No Status: Chronic Priority: Low Code(s): C61 - MALIGNANT NEOPLASM OF PROSTATE SNOMED Code(s): 5596611362 Plan: Dehydration -Secondary to diarrhea -Kidney function continues to improve Acute renal failure -Secondary to above -Nephrology following -Patient's renal function much improved with hydration Diarrhea -Recent colonoscopy 10/28/[address] Sahra Padilla. Erythematous mucosa found in the entire colon, diffuse area of moderately altered vascular, arithmetic's and scarred mucosa was found in the rectum. Biopsies were positive for cry ptitis, ischemic changes and fibrosis throughout the entire colon. When patient was being followed up by Dr. Armenta pt was c/o abdominal pain, persistent diarrhea, on exam there were concerns for dehydration so, pt was directed to the ER. -CT of the abdomen and pelvis reports fluid throughout the colon, findings consistent with a mild uncomplicated colitis and/or diarrhea -Agree with hydration, stool studies. C-diff negative -Recommend to slowly advance diet, as symptoms begin to improve -General surgery consulted -Included in the differential is immune mediated colitis r/t immunotherapy treatment vs IBD, however the former appears to be more likely -Spoke with GI, Dr. Morin, she agrees that this is more likely immune mediated and recommends solumedrol 20mg q8hrs. Patient will need outpt f/u with GI, as they are not currently covering the hospital History of lung and prostate adenocarcinoma. -Both diseases have been treated. -Most recent follow-up scans in September showed no evidence of disease -Patient will continue on follow-up as scheduled with Dr. Montenegro. Doctor attests: I performed a history and physical examination of this patient, developed impression and plan of care. Discussed with dictator. I agree with dictators note, documented as a scribe.
--- NOTE | 2023-12-03 18:24 | P.PN ---
Subjective Patient is seen for follow-up for acute kidney injury. Patient states that diarrhea has improved. He has had good urine output. Currently maintained on IV bicarb. Labs are pending from today. Objective - Vital Signs Vital signs: Vital Signs Temp 97.9 F 12/03/23 15:01 Pulse 56 L 12/03/23 15:01 Resp 18 12/03/23 15:01 BP 131/62 12/03/23 15:01 Pulse Ox 96 12/03/23 15:01 FiO2 Intake & Output 12/02/23 12/03/23 12/03/23 18:59 06:59 18:59 Weight 62.596 kg Other: # Voids 1 - Exam Patient is awake, comfortable, no acute distress. Alert oriented x 3. Examination of the heart S1 and S2 Examination of the lungs bilateral breath sounds are heard Abdomen is soft nontender Examination of lower extremities shows no evidence of edema CONTRACT ASSISTANT exam grossly intact - Labs CBC & Chem 7: 12/03/23 08:50 12/03/23 08:50 Labs: Abnormal Lab Results - Last 24 Hours (Table) 12/03/23 12/03/23 Range/Units 08:50 08:50 WBC 2.5 L (3.8-10.6) k/uL RBC 3.28 L (4.30-5.90) m/uL Hgb 10.8 L D (13.0-17.5) gm/dL Hct 30.4 L (39.0-53.0) % Plt Count 147 L (150-450) k/uL Chloride 109 H (98-107) mmol/L BUN 25 H (9-20) mg/dL Glucose 156 H (74-99) mg/dL Calcium 8.0 L (8.4-10.2) mg/dL Magnesium 1.5 L (1.6-2.3) mg/dL Assessment and Plan Assessment: 1. Acute kidney injury, ATN, nonoliguric secondary to severe hypotension and hypovolemia. Improving. ETHEL inhibitor's on hold. UA is benign with trace protein. CT of the abdomen does not show any obstructive uropathy. 2. Metabolic acidosis secondary to acute kidney injury and GI losses from di arrhea. 3. Volume depletion 4. History of ulcerative colitis 5. History of hypertension with blood pressure currently low and antihypertensive medications on hold. 6. History of lung cancer status post resection 7. History of seizures Plan: Follow-up on labs from today. Adjust IV fluids based on labs from today. Continue to hold ETHEL inhibitors. Repeat labs in a.m.
[2023-12-03] MEDS: methylPREDNISolone SOD SUCCI 40 MG/ML 1 ML VIAL IV SCH (21:08)
--- NOTE | 2023-12-03 22:09 | P.PN ---
Subjective Progress Note Date: 12/03/23 Patient is a pleasant 63-year-old male was sent in from a outpatient physician office because of a elevated creatinine of 5.1 baseline is within normal limits. Patient creatinine improved to 1.41 with a dobutamine drip that was ordered by ER doctor and IV fluids. Patient has diarrhea which has been going on for 2 months. Patient does have history of ulcerative colitis as per the patient and he states he has proctitis. Patient had a CT of the abdomen showed mild diffuse colitis. C. difficile was ordered patient only had 2 episodes of diarrhea today and he states it is improving at this time. Patient also on losartan and hydrochlorothiazide which is being held at this time patient was hypotensive yesterday. Patient history of lung cancer with apical lung resection. Not receiving any chemotherapy. 12/03/2023 Patient is evaluated today in the ER pending bed on the medical floor. His renal function has normalized and he has been taken off the dopamine gtt. Patient continues to report multiple soft stools overnight, however improving. Patient had an echocardiogram showing normal LV size and systolic function. Hemoglobin 10.8 today. BUN 25, creatinine 0.75. Review of Systems Constitutional: Denied any fatigue denied any fever. Cardio vascular: denied any chest pain, palpitations Gastrointestinal: denied any nausea, vomiting, diarrhea Pulmonary: Denied any shortness of breath cough Neurologic denied any new focal deficits All inpatient medications were reviewed and appropriate changes in these medications as dictated in the interval history and assessment and plan. PHYSICAL EXAMINATION: GENERAL: The patient is alert and oriented x3, not in any acute distress. Well developed, well nourished. HEENT: Pupils are round and equally reacting to light. EOMI. No scleral icterus. No conjunctival pallor. Normocephalic, atraumatic. No pharyngeal erythema. No thyromegaly. CARDIOVASCULAR: S1 and S2 present. No murmurs, rubs, or gallops. PULMONARY: Chest is clear to auscultation, no wheezing or crackles. ABDOMEN: Soft, nontender, nondistended, normoactive bowel sounds. No palpable organomegaly. MUSCULOSKELETAL: No joint swelling or deformity. EXTREMITIES: No cyanosis, clubbing, or pedal edema. NEUROLOGICAL: Gross neurological examination did not reveal any focal deficits. SKIN: No rashes. Assessment and plan --Acute renal failure: Secondary to prerenal azotemia, secondary to diarrhea and severe dehydration may be a competent of acute tubular necrosis from hypot ension. Patient improved with the dobutamine and IV fluids. Was on bicarb gtt which now has been discontinued. Continues on normal saline at 50 mls/hr. -Diarrhea: felt to be due to immunotherapy. Diarrhea is improving at this time continues to balsalazide, mesalamine, -Hypotension secondary to hypovolemia which improved at this time; Hold off on losartan and hydrochlorothiazide -History of hypertension: Management as mentioned above -Anion gap metabolic acidosis secondary to possible lactic acidosis on admission due to secondary to severe dehydration -Non-anion gap metabolic acidosis secondary to hyperchloremia from IV fluids bicarbonate drip as mentioned above -Lung cancer in remission -Seizure disorder DVT prophylaxis: Subcutaneous heparin GI Prophylaxis Plan Advanced diet to regular; monitor bowel movements and repeat blood work in the AM. Possible D/C home in the next 24 hours. The impression and plan of care has been dictated by Rachelle Howard, Nurse Practitioner as directed. Dr. Elissa MD I have performed a history and physical examination and medical decision making of this patient, discussed the same with the dictator, and agree with the dictators assessment and plan as written, documented as a scribe. Based on total visit time, I have performed more than 50% of this visit. Objective - Vital Signs Vital signs: Vital Signs Temp 97.9 F 12/03/23 15:01 Pulse 56 L 12/03/23 15:01 Resp 18 12/03/23 15:01 BP 131/62 12/03/23 15:01 Pulse Ox 96 12/03/23 15:01 FiO2 Intake & Output 12/03/23 12/03/23 12/04/23 06:59 18:59 06:59 Other: # Voids 1 - Labs CBC & Chem 7: 12/03/23 08:50 12/03/23 08:50 Labs: Abnormal Lab Results - Last 24 Hours (Table) 12/03/23 12/03/23 Range/Units 08:50 08:50 WBC 2.5 L (3.8-10.6) k/uL RBC 3.28 L (4.30-5.90) m/uL Hgb 10.8 L D (13.0-17.5) gm/dL Hct 30.4 L (39.0-53.0) % Plt Count 147 L (150-450) k/uL Chloride 109 H (98-107) mmol/L BUN 25 H (9-20) mg/dL Glucose 156 H (74-99) mg/dL Calcium 8.0 L (8.4-10.2) mg/dL Magnesium 1.5 L (1.6-2.3) mg/dL Assessment and Plan Time with Patient: Less than 30
[2023-12-04 04:33] VITALS: TEMP 98.2
[2023-12-04 12:13] VITALS: BP 141/69; RESP 16
[2023-12-04 12:21] LABS: African American GFR (CKD) >90 (>60 ml/min/1.73 sqM); Anion Gap 8 mmol/L; Blood Urea Nitrogen 16 mg/dL (9-20); Calcium 8.2 mg/dL (8.4-10.2); Carbon Dioxide 22 mmol/L (22-30); Chloride 107 mmol/L (98-107); Glucose 149 mg/dL (74-99); Magnesium 1.8 mg/dL (1.6-2.3); Non-African American GFR(CKD) >90 (>60 ml/min/1.73 sqM); Potassium 4.2 mmol/L (3.5-5.1); Sodium 137 mmol/L (137-145)
[2023-12-04 14:27] VITALS: PULSE 70
[2023-12-04] MEDS: MAGNESIUM SULFATE-D5W PMX 1 GM in DEXTROSE/WATER 1 100ML.BAG IVPB SCH (14:35)
--- NOTE | 2023-12-04 19:11 | P.PN ---
Subjective Progress Note Date: 12/04/23 On today's evaluation of 12/03/2023, the patient is being seen for a follow-up. Noted the patient had developed significant diarrhea and the patient was started with IV fluids. Creatinine is down to 0.7 with a BUN of 25 and the patient has not required any pressors. Sodium levels at 141, WBC count is at 2.5 with a hemoglobin 10.8 and a platelet count of 147. The patient otherwise is hemodynamically stable. The patient is on room air oxygen. No nausea vomiting or abdominal pain. The patient is currently on mesalamine 1 g rectally every night. The patient remains on a bicarb infusion at rate of 100 cc an hour. The patient remains on heparin subcu for DVT prophylaxis. Serum bicarb is up to 30. On today's evaluation of 12/04/2023, the patient has no specific complaints. His diarrhea has subsided and the patient was given IV Solu-Medrol over the past 24 hours. No nausea vomiting or abdominal pain. No chest pain. Overall, the patient is doing well and the plan is to discharge this patient home today. N noted, the patient's blood work showed improving renal function the patient's BU N is at 16 with a creatinine of 0.7. Electrolytes are all within normal limits. The patient is currently on mesalamine. The patient will be given a prednisone burst taper at time of discharge. Oxygenation is stable and the patient is currently on room air oxygen with a pulse ox of 96%. No other significant complaints otherwise for now. Objective - Vital Signs Vital signs: Vital Signs Temp 98.2 F 12/04/23 04:00 Pulse 70 12/04/23 09:00 Resp 18 12/04/23 09:00 BP 113/63 12/04/23 09:00 Pulse Ox 99 12/04/23 09:00 FiO2 Intake & Output 12/03/23 12/04/23 12/04/23 18:59 06:59 18:59 Intake Total 118 Balance 118 Intake: Oral 118 Other: Voiding Method Toilet Toilet # Voids 1 1 # Bowel Movements 1 1 - Exam GENERAL EXAM: Alert, well-nourished, 63-year-old white male, comfortable in no apparent distress. HEAD: Normocephalic and atraumatic EYES: Normal reaction of pupils, equal size. NOSE: Clear with pink turbinates. THROAT: No erythema or exudates. Dry mucous membranes. NECK: No masses, no JVD. CHEST: No chest wall deformity. LUNGS: Equal air entry with no crackles, wheeze, rhonchi or dullness. On room air. No conversational dyspnea or accessory muscle use.. CVS: S1 and S2 normal with no audible murmur, regular rhythm. No extra heart sounds ABDOMEN: No hepatosplenomegaly, active bowel sounds, no guarding or rigidity. SPINE: No scoliosis or deformity SKIN: No rashes CENTRAL NERVOUS SYSTEM: No focal deficits, tone is normal in all 4 extremities. EXTREMITIES: There is no peripheral edema, clubbing, or cyanosis. Peripheral pulses are intact. - Labs CBC & Chem 7: 12/03/23 08:50 12/04/23 10:07 Labs: Microbiology - Last 24 Hours (Table) 12/02/23 10:10 Stool Culture - Preliminary Stool Assessment and Plan Assessment: Severe diarrhea with possible colitis, CT of the abdomen and pelvis without contrast showed fluid throughout the colon consistent with mild uncomplicated colitis and/or diarrhea, stool for C. difficile has been negative. Clinically stable. Hemodynamically stable. Clinically improved. Hypotension and severe dehydration, secondary to above, improving after aggressive fluid resuscitation, currently normotensive Acute kidney injury, secondary to above and ATN, recovered Acute anion gap metabolic acidosis, secondary to above, recovered History of pulmonary adenocarcinoma, with reported history of right upper lobectomy and completed systemic treatment. Last dose of immunotherapy reportedly May,. Most recent PET scan performed 09/30/2023 did not show any suspicious changes or recurrent or metastatic lung cancer. He routinely follows with his oncologist Dr. Montenegro. History of prostate cancer, status/post radiation History of hypertension History of seizure disorder, with no reported recent seizure activity Former tobacco smoker Plan: Patient is currently on room air oxygen The patient is adequately resuscitated Stool for C. difficile has been negative Consider mesalamine Prednisone burst taper Currently on room air oxygen Lung cancer stable Discharge home today
--- NOTE | 2023-12-04 19:31 | P.PN ---
Subjective Progress Note Date: 12/04/23 Patient is seen for follow-up for acute kidney injury. Patient states that diarrhea has improved. He has had good urine output. Planning to go home today. Patient is awake, comfortable, no acute distress. Alert oriented x 3. Examination of the heart S1 and S2 Examination of the lungs bilateral breath sounds are heard Abdomen is soft nontender Examination of lower extremities shows no evidence of edema [employer] exam grossly intact Objective - Vital Signs Vital signs: Vital Signs Temp 98.2 F 12/04/23 04:00 Pulse 70 12/04/23 09:00 Resp 18 12/04/23 09:00 BP 113/63 12/04/23 09:00 Pulse Ox 99 12/04/23 09:00 FiO2 Intake & Output 12/03/23 12/04/23 12/04/23 18:59 06:59 18:59 Intake Total 118 Balance 118 Intake: Oral 118 Other: Voiding Method Toilet Toilet # Voids 1 1 # Bowel Movements 1 1 - Labs CBC & Chem 7: 12/03/23 08:50 12/04/23 10:07 Labs: Microbiology - Last 24 Hours (Table) 12/02/23 10:10 Stool Culture - Preliminary Stool Assessment and Plan Assessment: 1. Acute kidney injury, ATN, nonoliguric secondary to severe hypotension and hypovolemia. Improving. ETHEL inhibitor's on hold. UA is benign with trace protein. CT of the abdomen does not show any obstructive uropathy. 2. Metabolic acidosis secondary to acute kidney injury and GI losses from diarrhea. 3. Volume depletion 4. History of ulcerative colitis 5. History of hypertension with blood pressure currently low and antihypertensive medications on hold. 6. History of lung cancer status post resection 7. History of seizures Plan: Renal function normalized. Off IV Bicarb Continue to hold ETHEL inhibitors. Clear for discharge form nephrology standpoint.
--- NOTE | 2023-12-06 22:51 | P.DS ---
Providers Date of admission: 12/01/23 19:57 Attending physician: Jaquan Dumont Consults: 12/01/23 19:56 Consult Physician Urgent Consulting Provider: Kingsley Marroquin Consult Reason/Comments: Critical care management Do you want consulting provider notified?: Yes Consult Physician Urgent Consulting Provider: Vera Cantu Consult Reason/Comments: Acute renal failure Do you want consulting provider notified?: Yes 12/02/23 07:37 Consult Physician Urgent Consulting Provider: Lashae Cantu Consult Reason/Comments: SAMUEL Do you want consulting provider notified?: Yes 12/02/23 15:02 Consult Physician Urgent Consulting Provider: Amy Vera Consult Reason/Comments: immunotherapy, follows lucio montenegro Do you want consulting provider notified?: Yes Primary care physician: Jose Guadalupe Paulino Hospital Course: Final Diagnosis -Acute renal failure: Secondary to prerenal azotemia, secondary to diarrhea and severe dehydration may be a competent of acute tubular necrosis from hypotension. 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 -Hypotension secondary to hypovolemia which improved at this time; Hold off on losartan and hydrochlorothiazide -History of hypertension: Management as mentioned above -Anion gap metabolic acidosis secondary to possible lactic acidosis on admission due to secondary to severe dehydration -Non-anion gap metabolic acidosis secondary to hyperchloremia from IV fluids bicarbonate drip as mentioned above -Lung cancer in remission -Seizure disorder Discharge Disposition Patient is stable for discharge home. Patient will discharge on steroid taper and follow up with GI in the office. Randy inhibitor component of blood pressure remains on hold at this time. Follow up with known oncologist Dr. Garcia and also PCP DR. Paulino in 1 to 2 days. REpeat blood work. Hospital Course Patient is a pleasant 63-year-old male medical history of lung cancer in remission, seizure disorder, hypertension. Patient was sent in from a outpatient physician office because of a elevated creatinine of 5.1 baseline is within normal limits. Patient creatinine improved to 1.41 with a dobutamine drip that was ordered by ER doctor and IV fluids. Patient has diarrhea which has been going on for 2 months, and had a recent colonscopy showing erythematous mucosa found in the entire colon, diffuse area of moderately altered vascular, arithmet ic's and scarred mucosa was found in the rectum. Biopsies were positive for cryptitis, ischemic changes and fibrosis throughout the entire colon. Patient had a CT of the abdomen showed mild diffuse colitis. C. difficile was ordered patient only had 2 episodes of diarrhea today and he states it is improving at this time. C.dif was negative. Patient also on losartan and hydrochlorothiazide which is being held at this time patient was hypotensive yesterday. Patient history of lung cancer with apical lung resection. Not receiving any chemotherapy. Patient was evaluated by nephrology. Patient continues to report multiple soft stools overnight, however improving. Patient had an echocardiogram showing normal LV size and systolic function. Hemoglobin 10.8 today. BUN 25, creatinine 0.75. He has been taken off the dopamine gtt and continued on normal saline. The patient was evaluated by oncology and pulmonary physician obstetrician as well. The colitis is felt to be immune mediated vs. irritable bowel disease. Patient has been started on IV solumedrol and also on balsalazide, mesalamine. Patients renal function has normalized and currently tolerating regular diet. Patient was recommending to discharge on steroids for a slow taper and to follow up with GI in the office. Abdomen is soft and nontender lungs are clear. Alert x 3. Please see medication reconciliation for a list of current medications. Thank you for allowing us to participate in the care of this patient. The impression and plan of care has been dictated by Rachelle Howard, Nurse Practitioner as directed. Dr. Elissa MD I have performed a history and physical examination and medical decision making of this patient, discussed the same with the dictator, and agree with the dictators assessment and plan as written, documented as a scribe. Based on total visit time, I have performed more than 50% of this visit. Patient Condition at Discharge: Stable Plan - Discharge Summary New Discharge Prescriptions: New Famotidine [Pepcid] 20 mg PO DAILY #30 tablet predniSONE 10 mg PO DIRECTED 21 Days #28 tab amLODIPine [Norvasc] 5 mg PO DAILY #30 tab Continue levETIRAcetam [Keppra] 500 mg PO Q12HR 30 Days #60 tab Mesalamine 2.4 gm PO HS Mesalamine [Canasa] 1,000 mg RECTAL DIRECTED Donepezil [Aricept] 20 mg PO HS Folic Acid 1 mg PO DAILY Discontinued amLODIPine BESYLATE/BENAZEPRIL [amLODIPine BESYLATE/BENAZEPRIL 10-40 mg] 1 cap PO DAILY Discharge Medication List Donepezil [Aricept] 20 mg PO HS 09/23/21 [History] levETIRAcetam [Keppra] 500 mg PO Q12HR 30 Days #60 tab 11/02/21 [Rx] Folic Acid 1 mg PO DAILY 06/04/22 [History] Mesalamine 2.4 gm PO HS 12/01/23 [History] Mesalamine [Canasa] 1,000 mg RECTAL DIRECTED 12/01/23 [History] Famotidine [Pepcid] 20 mg PO DAILY #30 tablet 12/04/23 [Rx] amLODIPine [Norvasc] 5 mg PO DAILY #30 tab 12/04/23 [Rx] predniSONE 10 mg PO DIRECTED 21 Days #28 tab 12/04/23 [Rx] Follow up Appointment(s)/Referral(s): Yeimy Morin MD [STAFF PHYSICIAN] - 1 Week (GI specialist - office closed, please call to schedule follow up appointment. ) Jose Guadalupe Paulino [Primary Care Provider] - 1-2 days (office closed, please call to schedule follow up appointment. ) Samir Montenegro MD [STAFF PHYSICIAN] - 1 Week (office closed, please call to schedule follow up appointment. ) Ambulatory/Diagnostic Orders: Basic Metabolic Panel [LAB.AMB] Time Frame: 4 Days, Location: None Selected Complete Blood Count w/diff [LAB.AMB] Location: None Selected Patient Instructions/Handouts: Dehydration (DC), Acute Kidney Injury (DC) Activity/Diet/Wound Care/Special Instructions: Stop your old blood pressure medication Started on amlodipine 5 mg daily. Discharge Disposition: HOME SELF-CARE
== END 2023-12-04 16:35 | disposition home or self-care (01) | DRG 391 ==
LOC: EC 13:07 → 4SSUR 19:57 → 3SCARD 22:13
PROVIDERS: ADMIT Hospitalist; ATTEND Hospitalist
DX: K52.89 Other specified noninfective gastroenteritis and colitis (principal); N17.0 Acute kidney failure with tubular necrosis; C34.90 Malignant neoplasm of unspecified part of unspecified bronchus or lung; E87.20 Acidosis, unspecified; E86.0 Dehydration; C61 Malignant neoplasm of prostate; E86.1 Hypovolemia; E87.8 Other disorders of electrolyte and fluid balance, not elsewhere classified; G40.909 Epilepsy, unspecified, not intractable, without status epilepticus; I10 Essential (primary) hypertension; I95.89 Other hypotension; R19.7 Diarrhea, unspecified; Z80.1 Family history of malignant neoplasm of trachea, bronchus and lung; Z85.118 Personal history of other malignant neoplasm of bronchus and lung; Z85.46 Personal history of malignant neoplasm of prostate; Z90.2 Acquired absence of lung [part of]; Z92.3 Personal history of irradiation; Z87.891 Personal history of nicotine dependence
CPT/HCPCS: 36415; 71046; 74176; 80048; 80053; 81001; 83605; 83735; 85025; 85027; 85610; 85730; 86850; 86900; 86901; 87045; 87046; 87324; 93005; 93306; 96361; 96365; 96366; 96367; 96372; 96375; 99291

== ENCOUNTER → 2024-03-16 | Outpatient (CLI) | payer MEDICARE ==
--- NOTE | 2024-03-20 00:42 | PE ---
EXAMINATION TYPE: PET CT fusion skull to thigh DATE OF EXAM: 03/16/2024 COMPARISON: CT abdomen and pelvis 12/01/2023 Prior PET/CT: 09/30/2023 HISTORY: Lung cancer TECHNIQUE: Following the intravenous administration of 10.73 mCi of F-18 FDG, whole body images are performed from the skull base to the midthigh. Images are reviewed on the computer in the coronal, a xial, and sagittal planes. Reconstructed rotating images are created on independent workstation and reviewed on the computer. A localization and attenuation correction CT is performed in conjunction with the PET scan. DLP: 429.95 mGycm SCAN: Subsequent Blood glucose: 114 mg/dL Average Mediastinum SUV: 2.34 Average Liver SUV: 3.01 FINDINGS: NECK: No suspicious uptake THORAX: No suspicious uptake ABDOMEN: No suspicious uptake PELVIS: No suspicious uptake OSSEOUS STRUCTURES: No suspicious uptake LOCALIZATION CT: Mild emphysematous changes are within the lung amin. No discrete masses or nodules . No mediastinal adenopathy is evident. COMPARISON: No significant interval changes are evident. IMPRESSION: 1. No suspicious changes suggest recurrent or metastatic lung cancer. [facility], , 03/20/2024 12:39 AM
== END | disposition home or self-care (01) ==
LOC: RADPETMAIN 11:16
PROVIDERS: ATTEND Internal Medicine Hematology & Oncology
DX: C34.11 Malignant neoplasm of upper lobe, right bronchus or lung (principal); C61 Malignant neoplasm of prostate; R91.1 Solitary pulmonary nodule; R19.7 Diarrhea, unspecified; I10 Essential (primary) hypertension
CPT/HCPCS: 78815; A9552

== ENCOUNTER → 2024-09-18 | Outpatient (CLI) | payer MEDICARE ==
[2024-09-18 14:45] LABS: African American GFR (CKD) >90 (>60 ml/min/1.73 sqM); Blood Urea Nitrogen 11 mg/dL (9-20); Non-African American GFR(CKD) >90 (>60 ml/min/1.73 sqM)
--- NOTE | 2024-09-18 17:41 | CT ---
EXAMINATION TYPE: CT ChestAbdPelvis w con DATE OF EXAM: 09/18/2024 5:18 PM COMPARISON: 03/16/2024. CLINICAL INDICATION: Male, 64 years old with history of C34.11 LUNG CANCER; [facility], F/u for lung cancer. Technique: CT ChestAbdPelvis w con; Multiple axial images were obtained. Two-dimensional coronal and sagittal reconstructions were obtained. Contrast used:100ml mL of Isovue 300 with IV Contrast, (None if empty) Oral contrast used: with Oral Contrast CT DLP: 1461 mGycm, Automated exposure control for dose reduction was used. Findings: CHEST: LUNGS/ PLEURA: No focal consolidation, pneumothorax or pleural effusion. Moderate to severe emphysema changes of the lungs scattered peripheral nodules in the right middle lobe unchanged from prior taylor uring up to 6 mm series 8 image 29 and 4 mm image 24. Left major fissure intrafissural lymph nodes se flaco 8 image 41 and 40. Right upper lobe appears surgically absent. AIRWAY: Patent and unremarkable. HEART: Size within normal limits. No significant coronary artery calcifications. MEDIASTINUM: No gross evidence of adenopathy. VASCULATURE: No aortic aneurysm. MUSCULOSKELETAL: No acute osseous abnormalities. SOFT TISSUES/LYMPH NODES: Unremarkable. LOWER NECK: No significant findings. ABDOMEN: ABDOMEN LIVER: Unremarkable GALLBLADDER AND BILE DUCTS: Unremarkable. PANCREAS: Unremarkable. SPLEEN: Unremarkable. ADRENAL GLANDS: Unremarkable. KIDNEYS AND URETERS: No evidence of hydronephrosis or obstructing renal calculus. The ureters are unr emarkable. PELVIS BLADDER: Unremarkable REPRODUCTIVE: Unremarkable. ABDOMEN & PELVIS STOMACH AND BOWEL: No evidence of bowel obstruction. Incomplete distention of the sigmoid colon with some mild inflammation changes. PERITONEUM/RETROPERITONEUM: No evidence of pneumoperitoneum or free f luid. VASCULATURE: No evidence of aortic aneurysm. MUSCULOSKELETAL: No acute osseous abnormalities. Moderate disc degeneration changes are present throu ghout the thoracolumbar spine. Cam deformities of the femoral heads. LYMPH NODES: No gross evidence for lymphadenopathy. SOFT TISSUE/ABDOMINAL WALL: Fat-containing umbilical hernia. IMPRESSION: 1. Postsurgical changes of the right lung, No evidence for lymphadenopathy or new enlarging mass. 2. Stable right middle lobe pulmonary nodules and intrafissural lymph nodes in the left lung. 3. There is some mild inflammation of the sigmoid colon correlate for mild colitis. [facility], , 09/18/2024 5:39 PM
== END | disposition home or self-care (01) ==
LOC: RADCTMAIN 13:31
PROVIDERS: ATTEND Internal Medicine Hematology & Oncology
DX: C34.11 Malignant neoplasm of upper lobe, right bronchus or lung (principal); C61 Malignant neoplasm of prostate; K52.9 Noninfective gastroenteritis and colitis, unspecified; R91.8 Other nonspecific abnormal finding of lung field; Z79.890 Hormone replacement therapy
CPT/HCPCS: 82565; 84520; 71260; 74177; 36415; Q9967